=== PATIENT | male | born 1960 | race Caucasian/White ===

== ENCOUNTER 2016-08-13 13:11 | Emergency (ER) | payer OTHER ==
[2016-08-13 13:20] VITALS: BP 120/81; PULSE 78; RESP 18; TEMP 97.3
[2016-08-13] MEDS ORDERED: DIPH,PERTUS(ACELL)TETVAC-LF 0.5 ML VIAL IM ONE (13:24)
--- NOTE | 2016-08-13 13:41 | ED ---
Wound/Laceration HPI - General Chief Complaint: Wound/Laceration Stated Complaint: R hand laceration Time Seen by Provider: 08/13/16 13:23 Source: patient, RN notes reviewed Mode of arrival: ambulatory Limitations: no limitations - History of Present Illness Initial Comments: 56-year-old male presents emergency Department chief complaint right hand laceration. Patient states his putting in a sink and cut his hand on the metal. This was a brand-new sink. He is unsure when his last tetanus was. Patient states bleeding is controlled at this time no paresthesias no weakness. - Related Data Home Medications Medication Instructions Recorded Confirmed No Known Home Medications [No 11/10/13 11/10/13 Known Home Medications] Allergies Allergy/AdvReac Type Severity Reaction Status Date / Time No Known Allergies Allergy Verified 08/13/16 13:20 Review of Systems ROS Statement: Those systems with pertinent positive or pertinent negative responses have been documented in the HPI. ROS Other: All systems not noted in ROS Statement are negative. Past Medical History Past Medical History: No Reported History History of Any Multi-Drug Resistant Organisms: None Reported Past Surgical History: No Surgical Hx Reported Additional Past Surgical History / Comment(s): right knee Past Psychological History: No Psychological Hx Reported Smoking Status: Never smoker Past Alcohol Use History: None Reported Past Drug Use History: None Reported General Exam Limitations: no limitations General appearance: alert, in no apparent distress Respiratory exam: Present: normal lung sounds bilaterally. Absent: respiratory distress, wheezes, rales, rhonchi, stridor Cardiovascular Exam: Present: regular rate, normal rhythm, normal heart sounds. Absent: systolic murmur, diastolic murmur, rubs, gallop, clicks Extremities exam: Present: other (Right hand there is a laceration just proximal to the second MCP there is a 3 cm flap laceration patient is full range of motion of all digits and full strength there is no tendon involvement neurovascular intact) Course Vital Signs 08/13/16 13:18 Temperature 97.3 F L Pulse Rate 78 Respiratory 18 Rate Blood Pressure 120/81 O2 Sat by Pulse 95 Oximetry Medical Decision Making - Medical Decision Making 56-year-old male presented for laceration tetanus was updated wound was closed using sutures patient will come back in 10 days for suture removal wound care was discussed Disposition Clinical Impression: Laceration of right hand Disposition: HOME SELF-CARE Condition: Stable Instructions: Care For Your Stitches (ED), Laceration (ED) Additional Instructions: Please return to the Emergency Department if symptoms worsen or any other concerns. Wash the wound twice daily with soap and water. Have sutures removed in 10 days. Referrals: None,Stated [Primary Care Provider] - 1-2 days Time of Disposition: 13:40
--- NOTE | 2016-08-13 13:48 | ED ---
Disposition Clinical Impression: Laceration of right hand Disposition: HOME SELF-CARE Condition: Stable Instructions: Care For Your Stitches (ED), Laceration (ED) Additional Instructions: Please return to the Emergency Department if symptoms worsen or any other concerns. Wash the wound twice daily with soap and water. Have sutures removed in 10 days. Referrals: None,Stated [Primary Care Provider] - 1-2 days Procedures - Laceration Laceration #1 Indication: laceration Site: hand Size (cm): 3 Description: flap, irregular Depth: simple, single layer Anesthetic Used: lidocaine 1%, without epi Anesthesia Technique: local infiltration Amount (mls): 5 Pre-repair: wound explored, irrigated extensively, deep structures intact Type of Sutures: nylon Size of Sutures: 4-0 Number of Sutures: 7 Technique: simple, interrupted Patient Tolerated Procedure: well, no complications
== END 2016-08-13 13:50 | disposition home or self-care (01) ==
LOC: EC 13:11
DX: S61.411A Laceration without foreign body of right hand, initial encounter (principal); Z23 Encounter for immunization; W45.8XXA Other foreign body or object entering through skin, initial encounter; Y93.89 Activity, other specified
CPT/HCPCS: 12002; 90471; 90715; 99282

== ENCOUNTER 2017-09-09 08:36 | Emergency (ER) | payer OTHER ==
[2017-09-09 08:43] VITALS: TEMP 97.7
[2017-09-09] MEDS ORDERED: ORPHENADRINE 30 MG/ML 2 ML VIAL IVP STA (08:48)
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
[2017-09-09 10:08] VITALS: RESP 18
[2017-09-09 10:54] VITALS: BP 134/91; PULSE 63
== END 2017-09-09 10:53 | disposition home or self-care (01) ==
LOC: EC 08:36
DX: S22.088A Other fracture of T11-T12 vertebra, initial encounter for closed fracture (principal); Z88.8 Allergy status to other drugs, medicaments and biological substances; V43.52XA Car driver injured in collision with other type car in traffic accident, initial encounter; Y92.89 Other specified places as the place of occurrence of the external cause
CPT/HCPCS: 72110; 72128; 72131; 99285; 96374; J2360

== ENCOUNTER → 2017-10-15 | Outpatient (CLI) | payer OTHER ==
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
== END | disposition home or self-care (01) ==
LOC: RADNMMAIN 10:02
PROVIDERS: ATTEND Physical Medicine & Rehabilitation
DX: M47.817 Spondylosis without myelopathy or radiculopathy, lumbosacral region (principal); M47.814 Spondylosis without myelopathy or radiculopathy, thoracic region; M48.54XD Collapsed vertebra, not elsewhere classified, thoracic region, subsequent encounter for fracture with routine healing; M41.24 Other idiopathic scoliosis, thoracic region
CPT/HCPCS: 78306; A9503

== ENCOUNTER 2019-03-25 09:15 | Inpatient (IN) | payer OTHER ==
[2019-03-25] MEDS ORDERED: ASPIRIN 81 MG PO STA (09:27)
--- NOTE | 2019-03-25 09:30 | ED ---
Chest Pain HPI - General Chief Complaint: Chest Pain Stated Complaint: Chest Pain Time Seen by Provider: 03/25/19 09:20 Source: patient, RN notes reviewed Mode of arrival: wheelchair Limitations: no limitations - History of Present Illness Initial Comments: 58-year-old male presents emergency Department with chief complaint of chest discomfort. Patient states pain started primarily this morning that worsened. Patient states that he has had some on-and-off symptoms but nothing to this extent. He states it's in the anterior centralized region of his chest he occasionally feels some pain in his jaw. Denies any back pain or any shortness of breath. Patient denies complaints of abdominal pain including nausea vomiting diarrhea constipation no prior cardiac disease denies hypertension, hyperlipidemia or diabetes. She's had no prior heart cath or stress test. - Related Data Home Medications Medication Instructions Recorded Confirmed Acetaminophen [Tylenol] 500 mg PO Q4-6H PRN 09/09/17 09/09/17 Previous Rx's Medication Instructions Recorded Hydrocodone/Acetaminophen [[place] 1 tab PO Q6HR PRN #12 tab 09/09/17 5-325] Allergies Allergy/AdvReac Type Severity Reaction Status Date / Time GRAVOL AdvReac Vomiting Uncoded 03/25/19 09:19 Review of Systems ROS Statement: Those systems with pertinent positive or pertinent negative responses have been documented in the HPI. ROS Other: All systems not noted in ROS Statement are negative. EKG Findings - EKG Comments: EKG Findings:: EKG performed at 9:24 normal sinus rhythm rate of 82 [place] 156 QRS 92 QT/QTC 388/453 Past Medical History Past Medical History: No Reported History History of Any Multi-Drug Resistant Organisms: None Reported Past Surgical History: No Surgical Hx Reported Additional Past Surgical History / Comment(s): right knee Past Psychological History: No Psychological Hx Reported Smoking Status: Never smoker Past Alcohol Use History: None Reported Past Drug Use History: None Reported General Exam Limitations: no limitations General appearance: alert, in no apparent distress Head exam: Present: atraumatic, normocephalic, normal inspection Eye exam: Present: normal appearance, PERRL, EOMI. Absent: scleral icterus, conjunctival injection, periorbital swelling ENT exam: Present: normal exam, normal oropharynx, mucous membranes moist Neck exam: Present: normal inspection, full ROM. Absent: tenderness, meningismus, lymphadenopathy Respiratory exam: Present: normal lung sounds bilaterally. Absent: respiratory distress, wheezes, rales, rhonchi, stridor Cardiovascular Exam: Present: regular rate, normal rhythm, normal heart sounds. Absent: systolic murmur, diastolic murmur, rubs, gallop, clicks GI/Abdominal exam: Present: soft, normal bowel sounds. Absent: distended, tenderness, guarding, rebound, rigid Neurological exam: Present: alert, oriented X3 Skin exam: Present: warm, dry, intact, normal color. Absent: rash Course Vital Signs 03/25/19 03/25/19 03/25/19 09:16 09:34 09:50 Temperature 98.4 F Pulse Rate 81 Pulse Rate [ 81 Packing Clerk ] Respiratory 18 Rate Blood Pressure 128/85 O2 Sat by Pulse 98 Oximetry 03/25/19 03/25/19 09:51 10:00 Temperature Pulse Rate 75 75 Pulse Rate [ Packing Clerk ] Respiratory 18 17 Rate Blood Pressure 116/73 O2 Sat by Pulse 97 96 Oximetry Chest Pain MDM - MDM Chest x-ray, labs and EKG did not reveal any major abnormality's. Patient does have chest pain that has been persistent. Patient will be admitted for chest exacerbation rule out cardiac disease with consult cardiology. Disposition Clinical Impression: Chest pain Disposition: ADMITTED IP TO THIS HOSP Condition: Fair Referrals: None,Stated [Primary Care Provider] - 1-2 days
--- NOTE | 2019-03-25 09:46 | XR ---
EXAMINATION TYPE: XR chest 2V DATE OF EXAM: 03/25/2019 HISTORY: Chest Pain. REFERENCE: NONE. FINDINGS: The lungs are clear. Pleural space are clear. The heart is not enlarged. IMPRESSION: NO ACTIVE INTRATHORACIC DISEASE.
[2019-03-25 09:55] LABS: Basophils % (A) 1 %; Eosinophils # (A) 0.3 k/uL (0-0.7); Eosinophils % (A) 5 %; HCT 47.7 % (39.0-53.0); HGB 16.5 gm/dL (13.0-17.5); Lymphocytes # (A) 1.7 k/uL (1.0-4.8); Lymphocytes % (A) 29 %; MCHC 34.5 g/dL (31.0-37.0); MCV 86.8 fL (80.0-100.0); Mean Platelet Volume 6.9; Monocytes # (A) 0.3 k/uL (0-1.0); Monocytes % (A) 4 %; Neutrophils # (A) 3.5 k/uL (1.3-7.7); Neutrophils % (A) 60 %; Platelet Count 231 k/uL (150-450); RDW 13.4 % (11.5-15.5); WBC 5.9 k/uL (3.8-10.6)
[2019-03-25 10:01] LABS: ALT 29 U/L (4-49); AST 32 U/L (17-59); African American GFR (CKD) >90 (>60 ml/min/1.73 sqM); Albumin 4.4 g/dL (3.5-5.0); Alkaline Phosphatase 70 U/L (38-126); Anion Gap 10 mmol/L; Blood Urea Nitrogen 16 mg/dL (9-20); Calcium 9.9 mg/dL (8.4-10.2); Carbon Dioxide 24 mmol/L (22-30); Chloride 105 mmol/L (98-107); Glucose 119 mg/dL (74-99); Magnesium 1.7 mg/dL (1.6-2.3); Non-African American GFR(CKD) >90 (>60 ml/min/1.73 sqM); Potassium 4.1 mmol/L (3.5-5.1); Sodium 139 mmol/L (137-145); Total Bilirubin 0.6 mg/dL (0.2-1.3); Total Protein 7.4 g/dL (6.3-8.2)
[2019-03-25 10:08] LABS: INR 0.9 (<1.2); Partial Thromboplastin Time 23.7 sec (22.0-30.0); Prothrombin Time 9.8 sec (9.0-12.0)
[2019-03-25] MEDS ORDERED: HEPARIN SODIUM,PORCINE 5,000 UNIT/ML 1 ML VIAL IV PRN (10:30)
[2019-03-25] MEDS ORDERED: HEPARIN SODIUM,PORCINE 5,000 UNIT/ML 1 ML VIAL IV ONE (10:30)
[2019-03-25] MEDS: HEPARIN SOD,PORK IN 0.45% NACL 25,000 UNIT in 0.45% NACL 1 250ML.BAG IV SCH (10:59)
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
--- NOTE | 2019-03-25 13:52 | CT ---
EXAMINATION TYPE: CT angio chest DATE OF EXAM: 03/25/2019 1:36 PM COMPARISON: HISTORY: Chest pain. CT DLP: 1190.6 mGycm Automated exposure control for dose reduction was used. CONTRAST: CTA scan of the thorax is performed , patient injected with mL of , pulmonary embolism protocol. . FINDINGS: There is 5.4 mm noncalcified nodule in the lateral basal segment of the right lower lobe, b est seen on image 73. Visualized portions of the lungs are otherwise clear. There is no significant axillary, mediastinal or hilar adenopathy. There is no pleural or pericardial fluid. The heart is not enlarged. There is a small sliding hiatal hernia. There is no evidence of pulmonary embolus. The aorta is normal in caliber without evidence of dissection. Visualized portions of the upper abdomen are normal. There is minimal hypertrophic spondylosis within the spine. IMPRESSION: 1. THIS EXAMINATION IS NEGATIVE FOR PULMONARY EMBOLUS. 2. THE AORTA IS NORMAL IN CALIBER WITHOUT EVIDENCE OF DISSECTION. 3. SOLITARY RIGHT-SIDED PULMONARY NODULE. SHORT-TERM FOLLOW-UP IN 6 MONTHS TIME BE SUGGESTED.
[2019-03-25] MEDS ORDERED: HYDROcodone/APAP 5-325MG 1 EACH TAB PO PRN (13:57)
[2019-03-25] MEDS ORDERED: ACETAMINOPHEN TAB 325 MG TAB PO PRN (13:57)
[2019-03-25] MEDS ORDERED: ONDANSETRON 4 MG/2 ML VIAL IVP PRN (13:57)
[2019-03-25] MEDS ORDERED: NALOXONE 0.4 MG/ML 1 ML VIAL IV PRN (13:57)
[2019-03-25] MEDS ORDERED: MELATONIN 3 MG TABLET PO PRN (13:57)
--- NOTE | 2019-03-25 16:32 | CONS ---
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 He came into the hospital with chest pain that has been going on for a few months. The pain apparently was more severe and persisted in the midsternal area and therefore he came in. Pain is constant, not related to physical activity or any position. His initial set of troponin is normal. The quality of the pain has a lot of atypical features and it has been going on for a few months. He has no primary care physician that he now sees. He at the time of my evaluation is resting comfortably without symptoms. PAST MEDICAL HISTORY: This is unremarkable for any hypertension or diabetes. He has no previous surgical history. MEDICATIONS: He takes [place] for pain and Tylenol on a p.r.n. basis. ALLERGIES: He is ALLERGIC to a medicine called GRAVOL. PHYSICAL EXAMINATION: On examination, blood pressure is 138/70, pulse rate 68 per minute. HEENT unremarkable. Fundus was not examined by me. Neck is supple. No JVD. I do not hear a carotid bruit. There is no thyromegaly. Heart exam reveals S1, S2 heard normally. No rub, murmur or gallop. Lungs are clear. Abdomen is soft, nontender. Lower extremities reveal normal pulses. No edema. Central nervous system is normal. EKG revealed sinus mechanism, mild nonspecific ST abnormality. No acute changes. The R- waves are prominent in precordial leads. LABORATORY DATA: Lab data revealed unremarkable troponin initially. Chest x-ray also was unremarkable. The patient had an elevated D-dimer. CT angiography was performed which did not reveal any significant abnormality. Specifically, there was no evidence of any pulmonary embolism and aorta was free of significant disease. There was a right-sided solitary nodule of less than 6 mm. IMPRESSION: 1. Atypical chest pain. 2. Patient is not a smoker, has no major risk factors. 3. History of some arthritis pains. RECOMMENDATIONS: Patient's pain is very atypical. I am recommending serial troponins. We will continue IV heparin for now. If troponins are negative, no recurrence of pain or the quality of pain seems atypical, I will then discharge him and perform a stress test as an outpatient or will keep him and do the stress test on Wednesday. Will increase activity. Based on clinical course, we will make further recommendations. Discussed with the patient in detail. Thank you very much for the consult. MMODL / IJN: [id number] /
[2019-03-26] MEDS: HEPARIN SOD,PORK IN 0.45% NACL 25,000 UNIT in 0.45% NACL 1 250ML.BAG IV SCH (04:16)
[2019-03-26 07:51] LABS: Cholesterol 218 mg/dL (<200); HDL Cholesterol 43 mg/dL (40-60); LDL Cholesterol,Calculated 132 mg/dL (0-99); Triglycerides 214 mg/dL (<150)
[2019-03-26 08:05] LABS: HCT 43.1 % (39.0-53.0); MCH 30.6 pg (25.0-35.0); MCHC 34.9 g/dL (31.0-37.0); MCV 87.6 fL (80.0-100.0); Mean Platelet Volume 6.9; Platelet Count 208 k/uL (150-450); RBC 4.92 m/uL (4.30-5.90); RDW 13.6 % (11.5-15.5)
[2019-03-26] MEDS: ASPIRIN 81 MG PO SCH (08:30)
[2019-03-26] MEDS ORDERED: ASPIRIN 325 MG TAB PO SCH (09:00)
[2019-03-26] MEDS: NITROGLYCERIN SL TABS 0.4 MG TAB SUBLINGUAL PRN ×3 (09:51→19:08)
--- NOTE | 2019-03-26 10:52 | PN ---
PROGRESS NOTE Mr. Thurston presented yesterday with chest pain for nearly a few months. His troponins are normal. EKG is unremarkable. Echo was performed yesterday revealed normal systolic function. He has no further chest pain. Troponins are normal. I am suggesting he can be discharged on 20 mg of atorvastatin daily, metoprolol tartrate 12.5 mg daily, aspirin 81 mg daily. I will see him in the office within a week and perform stress test as an outpatient. Vitals are stable. No JVD. S1-S2 heard normally. Lungs are clear. Abdomen and lower extremity exam unchanged. MMODL / IJN: [id number] /
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
[2019-03-26] MEDS: ATORVASTATIN 40 MG TAB PO SCH (11:02)
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
[2019-03-27 04:34] VITALS: RESP 18
[2019-03-27] MEDS: ASPIRIN 81 MG PO SCH (07:38)
[2019-03-27] MEDS: ATORVASTATIN 40 MG TAB PO SCH (07:38)
--- NOTE | 2019-03-27 09:51 | ECHOF ---
Referral Reason:chest pain MEASUREMENTS -------- HEIGHT: 0.0 cm WEIGHT: 0.0 kg BP: RVIDd: 3.3 cm (< 3.3) IVSd: 1.2 cm (0.6 - 1.1) LVIDd: 4.6 cm (3.9 - 5.3) LVPWd: 1.1 cm (0.6 - 1.1) IVSs: 1.6 cm LVIDs: 3.1 cm LVPWs: 1.6 cm LA Diam: 3.1 cm (2.7 - 3.8) Ao Diam: 3.4 cm (2.0 - 3.7) AV Cusp: 2.0 cm (1.5 - 2.6) MV EXCURSION: 14.967 mm (> 18.000) MV EF SLOPE: 76 mm/s (70 - 150) EPSS: 0.3 cm MV E Alessandro: 0.67 m/s MV DecT: 279 ms MV A Alessandro: 0.58 m/s MV E/A Ratio: 1.17 FINDINGS -------- Sinus rhythm. This was a technically difficult study with suboptimal apical views. The left ventricular size is normal. There is borderline concentric left ventricular hypertrophy. Overall left ventricular systolic function is normal with, an EF between 55 - 60 %. The right ventricle is mildly enlarged. The left atrial size is normal. The right atrium is normal in size. 5 ml of Lumason was utilized for enhancement of images. Interatrial and interventricular septum intact. The aortic valve is trileaflet and appears structurally normal. The mitral valve is normal. The tricuspid valve appears structurally normal. There is no pulmonic regurgitation present. The aortic root size is normal. Normal inferior vena cava with normal inspiratory collapse consistent with estimated right atrial pre ssure of 5 mmHg. There is no pericardial effusion. CONCLUSIONS -------- 1. Sinus rhythm. 2. This was a technically difficult study with suboptimal apical views. 3. The left ventricular size is normal. 4. There is borderline concentric left ventricular hypertrophy. 5. Overall left ventricular systolic function is normal with, an EF between 55 - 60 %. 6. The right ventricle is mildly enlarged. 7. The left atrial size is normal. 8. The right atrium is normal in size. 9. 5 ml of Lumason was utilized for enhancement of images. 10. Interatrial and interventricular septum intact. 11. The aortic valve is trileaflet and appears structurally normal. 12. The mitral valve is normal. 13. The tricuspid valve appears structurally normal. 14. There is no pulmonic regurgitation present. 15. The aortic root size is normal. 16. Normal inferior vena cava with normal inspiratory collapse consistent with estimated right atrial pressure of 5 mmHg. 17. There is no pericardial effusion. SURGERY ASSISTANT: Xochitl Thurston RDCS
--- NOTE | 2019-03-27 10:16 | P.PN ---
Subjective This is a pleasant 58-year-old male past medical history significant for chronic back pain s/p rhizotomy. He continues to have intermittent chest pains throughout the weekend. The pain is not with exertion or activity. It mostly occurs at rest. He still feels a faint discomfort currently. There is no radiation to the arms, back, neck or jaw currently. He denies associated shortness of breath, dizziness or palpitations. At times he does experience some dizziness. Blood pressure 111/73, heart rate 56, afebrile and maintaining oxygen saturation on room air. Currently maintained on atorvastatin 40 mg daily and aspirin 81 mg daily. Echocardiogram reveals preserved LV systolic function with EF 55-60%. GENERAL: Well-appearing, well-nourished and in no acute distress. NECK: Supple without JVD or thyromegaly. LUNGS: Breath sounds clear to auscultation bilaterally. Respiration equal and unlabored. No wheezes, rales or rhonchi. HEART: Regular rate and rhythm without murmurs, rubs or gallops. S1 and S2 heard. EXTREMITIES: Normal range of motion, no edema. No clubbing or cyanosis. Peripheral pulses intact. ASSESSMENT Chest pain, atypical. An acute coronary event has been ruled out. Dyslipidemia PLAN Proceed with stress test as previously ordered. If abnormal we will consider coronary angiography. If normal he is stable for discharge from a cardiac perspective. Follow up with Dr. Antony in the office. Nurse Practitioner note has been reviewed, I agree with a documented findings and plan of care. Patient was seen and examined. Objective - Vital Signs Vital signs: Vital Signs Temp 97.8 F 03/27/19 07:00 Pulse 56 L 03/27/19 07:00 Resp 18 03/27/19 07:00 BP 111/73 03/27/19 07:00 Pulse Ox 98 03/27/19 07:00 Intake & Output 03/26/19 03/27/19 03/27/19 18:59 06:59 18:59 Intake Total 250 240 Balance 250 240 Intake: Oral 240 Blood Product 250 Other: Voiding Method Toilet Toilet Toilet # Voids 1 1 - Labs CBC & Chem 7: 03/26/19 07:05 03/25/19 07:31
--- NOTE | 2019-03-27 10:50 | NM ---
EXAMINATION TYPE: NM stress cardiolite complete DATE OF EXAM: 03/27/2019 COMPARISON: NONE HISTORY: Chest pain TECHNIQUE: After the intravenous administration of 10.56 mCi Tc 99m Sestamibi - Rest images obtained 60 minutes post injection. The patient exercised using a JULIO CESAR protocol and 1 minute prior to peak exercise was injected with 26.8 mCi Tc 99m Sestamibi - Stress images obtained 5 minutes post injecti on. FINDINGS: Targeted heart rate was achieved during performance of the study. Review of stress and rest SPECT herve ges demonstrates some mild decreased radio pharmaceutical uptake along the inferior wall left ventric le on stress as compared to rest images. There is artifact due to gut activity. Gated analysis shows normal wall motion with an estimated left ventricular ejection fraction of 61 %. IMPRESSION: Difficult to exclude stress-induced left ventricular myocardial ischemia along the inferior wall left ventricle
--- NOTE | 2019-03-27 14:20 | EST ---
EXERCISE STRESS AGE: 58 SEX: M HT: 69" WT: 246 PROTOCOL: Cardiolite Kwesi Study STAGE: 3 DURATION OF EXERCISE: 6:15 HEART RATE REST: 59 BLOOD PRESSURE REST: 128/83 MAXIMUM HEART RATE ACHIEVED: 143 MAXIMUM BLOOD PRESSURE: 196/83 85% MPHR: 139 100% MPHR: 164 METS: 7.1 INDICATIONS: Chest pain. CLINICAL INFORMATION: Stress Cardiolite study was performed. Patient was exercised for a total period of 6 minutes. Peak heart rate of 143 was achieved. Maximum blood pressure of 196/83 mmHg was noted. The resting EKG shows a normal sinus rhythm with normal MS interval and QRS duration and normal ST-T waves. No ST-segment depression suggestive of ischemia is noted. Patient did not complain of any chest pain during the test. FINAL IMPRESSION: This exercise test is not suggestive of ischemia. The results of the nuclear study will follow. No dysrhythmias are noted. MMODL / IJN: [id number] /
[2019-03-27] MEDS ORDERED: ALPRAZolam 0.5 MG TAB PO PRN (15:01)
[2019-03-27] MEDS ORDERED: SODIUM CHLORIDE 0.9% 1,000 ML in EMPTY BAG 1 BAG IV ONE (15:01)
[2019-03-27] MEDS ORDERED: ALPRAZolam 0.25 MG TAB PO PRN (15:01)
--- NOTE | 2019-03-27 15:51 | P.PN ---
Subjective Chart was reviewed patient was examined. Patient was admitted with chest pain. Patient is currently chest pain-free. Stress test showed possible positivity and he is planned for cardiac catheterization tomorrow. Objective - Vital Signs Vital signs: Vital Signs Temp 97.9 F 03/27/19 15:27 Pulse 85 03/27/19 15:27 Resp 18 03/27/19 15:27 BP 123/84 03/27/19 15:27 Pulse Ox 95 03/27/19 15:27 Intake & Output 03/26/19 03/27/19 03/27/19 18:59 06:59 18:59 Intake Total 250 240 100 Balance 250 240 100 Intake: Oral 240 Blood Product 250 Other 100 Other: Voiding Method Toilet Toilet Toilet # Voids 1 1 - Exam Vital Signs: I have reviewed the vital signs. GENERAL: Well-nourished, Well-developed , no apparent distress, cooperative Eyes: PERRL, extraoculry movements intact, clear conjunctiva Head: : Atraumatic external nose and ears, oropharyngeal mucosa is moist without lesions or exudates Neck: Symmetric, trachea midline, No thyromegaly, no masses or neck vain pulsation, no neck rigidity CVS: +S1/S2, No murmurs or gallops. Peripheral pulses 2+ and equal in all extremities. RESP: Unlabored respiratory effort. Clear to auscultation bilaterally. Abdomen: Bowel sounds present in all 4 quadrants, Soft to palpation, Nontender/Nondistended, No hepatosplenomegaly, no hernias or masses, no CVA tnderness Musculoskeletal: Extremities w/o deformity, No cyanosis or clubbing, no joint swelling Skin: Warm, Dry. No rashes or lesions Neuro: director of home economics II-XII grossly intact, motor strenght 5/5 i upper and lower extremities, no clonus, patellar DTRs 2+ and sympetrical Psych: Awake, Alert, & Oriented (AAO) x3 Appropriate mood and affect - Labs CBC & Chem 7: 03/26/19 07:05 03/25/19 07:31 Assessment and Plan Assessment: Chest pain with some atypical features -Troponins negative, repeat troponin negative after second episode of chest pain, -echocardiogram with normal ejection fraction and wall motion per verbal report from cardiology -Plan for cardiac catheterization the morning Dizziness Resolved - check orthostatics - Carotid doppler ordered and negative Dyslipidemia - Statin Pulm nodule - will need PCP and F/W in 6 months (added Dr. Ferrara to D/C tab) Obesity with BMI 36.4 -Structured outpatient weight loss Chronic back pain - outpatient follow-up, currently controlled.
[2019-03-28] MEDS: ATORVASTATIN 40 MG TAB PO SCH (07:40)
[2019-03-28] MEDS ORDERED: ASPIRIN 81 MG PO ONE (09:00)
[2019-03-28 11:30] VITALS: TEMP 97.4
[2019-03-28] MEDS ORDERED: IV FLUID CONTINUATION 800 ML IV ONE (13:30)
[2019-03-28] MEDS ORDERED: MIDAZOLAM 2 MG/2 ML VIAL IVP ONE (13:48)
[2019-03-28] MEDS ORDERED: LIDOCAINE 1% INJ 10MG/ML (20 ML MDV) SQ ONE (13:50)
[2019-03-28] MEDS: VERAPAMIL SYRINGE (5 MG/10 ML) INTRAARTER ONE ×2 (13:52→14:02)
[2019-03-28] MEDS ORDERED: HEPARIN SODIUM 1,000 UN/ML (10ML VL) IV ONE (13:53)
[2019-03-28] MEDS ORDERED: IOPAMIDOL-370 100ML BTL INJ ONE (14:02)
[2019-03-28] MEDS ORDERED: RX INFO: IV CONTRAST WAS GIVEN 1 EACH MISC MISCELLANE PRN (14:18)
[2019-03-28] MEDS ORDERED: SODIUM CHLORIDE 0.9% 1,000 ML IV SCH (14:30)
--- NOTE | 2019-03-28 14:52 | CC ---
CARDIAC CATHETERIZATION REPORT DATE OF SERVICE: 03/28/2019 PROCEDURE: Left heart catheterization and coronary angiography. PERFORMED BY: Dr. Hayes Antony. Moderate conscious sedation time was 16 minutes. Patient was administered Versed. Oxygen saturation, hemodynamics and EKG were monitored closely. CLINICAL INFORMATION: Mr. Thurston is a 58-year-old gentleman without significant past medical history. He came into the hospital with episode of chest pain that seemed atypical. Troponins were negative. I was planning on discharging but he continued to have symptoms. Therefore he had a stress test with Lexiscan, which revealed a question of ischemia in the inferior wall and therefore he was advised cardiac catheterization after due discussion regarding risks, benefits, and options. PROCEDURE NOTE: Under local anesthesia and strict aseptic precautions, a 6-Palestinian introducer was placed in the right radial artery. Using a 3.5 left and a 4.0 right Rafa catheters, I performed coronary angiography in the same right catheter was used to check LV pressures. LV gram was not performed. The sheath was taken out and TR band applied as per protocol. The saturation of the finger of the right hand of more than 93%. The patient received 4000 units of heparin intravenously. CARDIAC CATHETERIZATION FINDINGS: The left end-diastolic pressure was about 14 mmHg without any gradient across the aortic valve. CORONARY ANGIOGRAPHY FINDINGS: LEFT MAIN CORONARY ARTERY: This is a long, tortuous, disease-free vessel that bifurcates into LAD, circumflex and ramus intermedius. No disease of significance in the left main. LEFT ANTERIOR DESCENDING CORONARY ARTERY: Good caliber vessel extends along the anterior wall, gives off septal and diagonal branches, runs all the way to the apex. No significant disease. LEFT RAMUS INTERMEDIUS: This is a good caliber, good distribution vessel that runs laterally, supplies a fair amount of myocardium. No significant disease. LEFT POSTERIOR CIRCUMFLEX CORONARY ARTERY: This is a good caliber, good distribution vessel, gives off a posterolateral branch, has minor irregularities distally. No significant disease. RIGHT CORONARY ARTERY: This is a technically dominant vessel. No significant disease distally, bifurcates into PDA and PLV, both of which have minor irregularities. No significant disease in the dominant RCA. LV-gram was not performed. FINAL IMPRESSION: This patient has a right dominant system, no significant coronary artery disease, mildly elevated filling pressures and no gradient across the aortic valve. RECOMMENDATIONS: Findings were discussed with the patient, and several family members. No intervention from a cardiac standpoint other than risk factor modification. Patient will be discharged later today. He will be orally and intravenously hydrated and I will see him in the office in one week. He will go home on the same current medications. MMSHER / HORACION: [id number] /
[2019-03-28 16:54] VITALS: BP 133/84; PULSE 67
--- NOTE | 2019-03-28 18:05 | P.DS ---
Providers Date of admission: 03/27/19 08:04 Attending physician: Carlyn aBnks DO Consults: 03/25/19 10:30 Consult Physician Urgent Consulting Provider: Fermin Perez Reason/Comments: chest pain Do you want consulting provider notified?: Yes Primary care physician: Christiano Ferrara [facility] Course: Date of admission: 03/25/2019 Date of discharge 03/28/2019 Disposition: Home Consultants: Dr. Hayes Antony cardiology Procedures done on this admission: Left heart catheterization: No significant coronary artery disease Other other pertinent studies: Cardiolite stress test CT anginal chest: Negative for pulmonary embolism or aortic dissection. Solitary right sided calcified pulmonary nodule 5.7 mm in the lateral basal segment of the right lower lobe. Short-term follow-up in 6 months with CAT scan recommended by radiologist Admission diagnoses: Chest pain Discharge diagnoses: 1. Atypical chest pain, probably musculoskeletal in nature 2. Pulmonary nodule Reason for admission and Hospital course: Per history and physical on admission, patient was complaining of mid retrosternal chest pain no particular provoking or alleviating factors, occasionally with radiation to the jaw. No diaphoresis palpitations nausea vomiting. Patient reports that this pain and discomfort is been coming on and off for the last 3-4 months. He had significant tenderness over his costo chondral joints per Admission doctor. Patient was evaluated in ER and per cardiology. EKG was unremarkable. CT angiogram was negative for pulmonary embolism or dissection. Serial troponin was negative. He underwent stress test that showed preserved ejection fraction but there was some changes in the basal area inconclusive. He was then taken to cardiac catheterization by cardiology no significant coronary artery disease was found. Patient was cleared for discharge home with cardiology. Cardiology prescribed aspirin statin metoprolol and recommended follow-up in their office in one to 2 weeks. Incidental finding on the CAT scan of the chest was finding of the pulmonary nodule in the right side. Patient is a nonsmoker denies history of any malignancies. He was recommended that he follows up with primary care physician in regards to this and repeat imaging. Symptomatic information was relayed to the patient and he returned verbal understanding. He was placing his discharge paperwork. Social work set up the patient with the new primary care physician. Physical examination on time of discharge Vital Signs: I have reviewed the vital signs. GENERAL: Well-nourished, Well-developed , no apparent distress, cooperative Eyes: PERRL, extraoculry movements intact, clear conjunctiva Head: : Atraumatic external nose and ears, oropharyngeal mucosa is moist without lesions or exudates Neck: Symmetric, trachea midline, No thyromegaly, no masses or neck vain pulsation, no neck rigidity CVS: +S1/S2, No murmurs or gallops. Peripheral pulses 2+ and equal in all extremities. RESP: Unlabored respiratory effort. Clear to auscultation bilaterally. Abdomen: Bowel sounds present in all 4 quadrants, Soft to palpation, Nontender/Nondistended, No hepatosplenomegaly, no hernias or masses, no CVA tnderness Musculoskeletal: Extremities w/o deformity, No cyanosis or clubbing, no joint swelling 35 minutes spent on this discharge Patient Condition at Discharge: Fair Plan - Discharge Summary Discharge Rx Participant: No New Discharge Prescriptions: New Atorvastatin [Lipitor] 20 mg PO DAILY #60 tablet Metoprolol Tartrate [Lopressor] 12.5 mg PO QAM #30 dose Continue Aspirin EC [Ecotrin Low Dose] 162 mg PO ONCE PRN PRN Reason: Pain Discharge Medication List Aspirin EC [Ecotrin Low Dose] 162 mg PO ONCE PRN 03/25/19 [History] Atorvastatin [Lipitor] 20 mg PO DAILY #60 tablet 03/27/19 [Rx] Metoprolol Tartrate [Lopressor] 12.5 mg PO QAM #30 dose 03/27/19 [Rx] Follow up Appointment(s)/Referral(s): Annie Antony MD [STAFF PHYSICIAN] - 04/06/19 10:45 am Christiano Ferrara [Primary Care Provider] - 1-2 Days Patient Instructions/Handouts: Chest Pain (DC), Pulmonary Nodules (GEN) Discharge Disposition: HOME SELF-CARE Plan of Treatment: 1. FOLLOW UP WITH PRIMARY CARE DOCTOR SOL FOR RIGHT LUNG NODULE 2. follow up with cardiology as ordered
[2019-03-29] MEDS ORDERED: ASPIRIN 81 MG PO SCH (09:00)
== END 2019-03-28 20:05 | disposition home or self-care (01) | DRG 287 ==
LOC: EC 09:15 → 1SOBS 10:32 → OBSVTOIN 03-27 08:04
PROVIDERS: ADMIT Internal Medicine; ATTEND Internal Medicine
PROC: 4A023N7 Measurement of Cardiac Sampling and Pressure, Left Heart, Percutaneous Approach (ICD-10-PCS; principal; 2019-03-28 13:30)
PROC: B2111ZZ Fluoroscopy of Multiple Coronary Arteries using Low Osmolar Contrast (ICD-10-PCS; principal; 2019-03-28 13:30)
DX: R07.89 Other chest pain (principal); R91.1 Solitary pulmonary nodule; E66.01 Morbid (severe) obesity due to excess calories; Z68.36 Body mass index [BMI] 36.0-36.9, adult; E78.5 Hyperlipidemia, unspecified; R61 Generalized hyperhidrosis; R42 Dizziness and giddiness; G89.29 Other chronic pain; M54.9 Dorsalgia, unspecified; M19.90 Unspecified osteoarthritis, unspecified site; Z98.890 Other specified postprocedural states; Z88.8 Allergy status to other drugs, medicaments and biological substances; Z82.49 Family history of ischemic heart disease and other diseases of the circulatory system; Z83.6 Family history of other diseases of the respiratory system
CPT/HCPCS: 36415; 71046; 71275; 78452; 80053; 80061; 83690; 83735; 83880; 84484; 85025; 85027; 85610; 85730; 93005; 93017; 93306; 93458; 93880; 96365; 96376; 99285

== ENCOUNTER → 2019-09-26 | Outpatient (CLI) | payer OTHER ==
--- NOTE | 2019-09-26 14:01 | CT ---
EXAMINATION TYPE: CT chest w con DATE OF EXAM: 09/26/2019 COMPARISON: CTA chest 03/25/2019. CT lumbar spine 09/09/2017. HISTORY: Right pulmonary nodule CT DLP: 868.7 mGycm Automated exposure control for dose reduction was used. CONTRAST: CT scan of the chest is performed with IV Contrast, patient injected with 100 mL of Isovue 300. FINDINGS: LUNGS: Unchanged 5 mm solid pulmonary nodule of the right lower lobe laterally (4:44). There is no pl eural effusion or pneumothorax seen. The tracheobronchial tree is patent. MEDIASTINUM: No lymphadenopathy. No cardiomegaly or pericardial effusion is seen. OTHER: Fatty liver. Peripelvic renal cysts. There is vertebral body height loss of the T11 vertebral body superior endplate which is minimally increased versus 09/09/2017 CT comparison. IMPRESSION: 1. Unchanged 5 mm right lower lobe lung nodule. Per Fleischner criteria, if the patient is low risk, no additional follow-up is recommended. If the patient is high risk, optional noncontrast CT can be performed in 6 months. 2. Fatty liver.
== END | disposition home or self-care (01) ==
LOC: RADCTMAIN 09:37
PROVIDERS: ATTEND Family Medicine
DX: R91.1 Solitary pulmonary nodule (principal)
CPT/HCPCS: 71260; Q9967

== ENCOUNTER 2019-12-23 11:22 | Emergency (ER) | payer OTHER ==
[2019-12-23 11:35] VITALS: RESP 16; TEMP 97.4
[2019-12-23] MEDS ORDERED: HYDROcodone/APAP 5-325MG 1 EACH TAB PO STA (11:56)
--- NOTE | 2019-12-23 12:01 | ED ---
Fall HPI - General Chief Complaint: Fall Stated Complaint: rib pain Time Seen by Provider: 12/23/19 11:43 Source: patient, family Mode of arrival: ambulatory - History of Present Illness Initial Comments: Patient is a 59-year-old male presenting to the emergency department with a chief complaint of rib pain. Patient states about one week ago he tripped and fell forward which causes right arm and elbow to push into the right side of his chest cavity. Patient states he has right-sided rib pain that seems to be slowly improving although it is still persistent. Patient reports the pain is pleuritic in nature especially with full inspiration. States there was no bruising in the region. States there is significant pain to palpation on the right side. States she also reported some epigastric pain this morning that went away. Denies chest pain or shortness of breath. - Related Data Home Medications Medication Instructions Recorded Confirmed Aspirin EC [Ecotrin Low Dose] 162 mg PO ONCE PRN 03/25/19 03/25/19 Previous Rx's Medication Instructions Recorded Atorvastatin [Lipitor] 20 mg PO DAILY #60 tablet 03/27/19 Metoprolol Tartrate [Lopressor] 12.5 mg PO QAM #30 dose 03/27/19 Ketorolac [Toradol] 10 mg PO Q8HR #7 tab 12/23/19 Allergies Allergy/AdvReac Type Severity Reaction Status Date / Time GRAVOL AdvReac Vomiting Uncoded 03/25/19 11:56 Review of Systems ROS Statement: Those systems with pertinent positive or pertinent negative responses have been documented in the HPI. ROS Other: All systems not noted in ROS Statement are negative. Past Medical History Past Medical History: No Reported History Additional Past Medical History / Comment(s): Chronic back pain status post rhizotomy History of Any Multi-Drug Resistant Organisms: None Reported Past Surgical History: Back Surgery, Orthopedic Surgery Additional Past Surgical History / Comment(s): right knee scope, rhizotomy for back pain Past Anesthesia/Blood Transfusion Reactions: No Reported Reaction Past Psychological History: No Psychological Hx Reported Smoking Status: Former smoker Past Alcohol Use History: Occasional Past Drug Use History: None Reported - Past Family History Father Additional Family Medical History / Comment(s): Myocardial infarction in his 50s, chronic lung problems Brother(s) Additional Family Medical History / Comment(s): Myocardial infarction at age 50 General Exam Limitations: no limitations General appearance: alert, in no apparent distress, obese Head exam: Present: atraumatic, normocephalic, normal inspection Eye exam: Present: normal appearance, PERRL, EOMI Pupils: Present: normal accommodation ENT exam: Present: normal exam, normal oropharynx, mucous membranes moist, TM's normal bilaterally, normal external ear exam Neck exam: Present: normal inspection, full ROM. Absent: tenderness Respiratory exam: Present: normal lung sounds bilaterally, chest wall tenderness (Tenderness on the right side along the anterior regular line. Very localized tenderness to palpation.). Absent: respiratory distress, wheezes, rales Cardiovascular Exam: Present: regular rate, normal rhythm, normal heart sounds GI/Abdominal exam: Present: soft, tenderness (No tenderness in the epigastric or lower sternal region.). Absent: distended, guarding, rebound, rigid Extremities exam: Present: normal inspection, full ROM, normal capillary refill. Absent: tenderness Back exam: Present: normal inspection, full ROM. Absent: tenderness, CVA tenderness (R), CVA tenderness (L) Neurological exam: Present: alert, oriented X3 Psychiatric exam: Present: normal affect, normal mood Skin exam: Present: warm, dry, intact, normal color Course Vital Signs 12/23/19 11:28 Temperature 97.4 F L Pulse Rate 74 Respiratory 16 Rate Blood Pressure 159/99 O2 Sat by Pulse 99 Oximetry Medical Decision Making - Medical Decision Making Patient is a 59-year-old male presenting to emergency Department with a chief complaint of rib pain. X-ray of the chest and right-sided ribs is unremarkable. There is some pleural thickening noted suggesting pleuritis. This is the region where the patient also had some pain this morning which has since resolved. Radiology is recommending CT in the short-term future. Patient states he has a CT of his chest scheduled one week from today. Patient was given Toradol to help with the suspected pleuritis. She does not have any renal or gastric issues. He was advised to follow with the primary care physician. Strict return parameters were thoroughly discussed with patient was understanding and agreeable. Case discussed with physician. Disposition Clinical Impression: Fall, Rib pain on right side Disposition: HOME SELF-CARE Condition: Stable Instructions (If sedation given, give patient instructions): Rib Contusion (ED) Additional Instructions: Follow-up with her primary care. Take prescribed medication as directed. Return to emergency department if symptoms worsen. Prescriptions: Ketorolac [Toradol] 10 mg PO Q8HR #7 tab Is patient prescribed a controlled substance at d/c from ED?: No Referrals: Christiano Ferrara [Primary Care Provider] - 1-2 days Time of Disposition: 13:21
--- NOTE | 2019-12-23 13:07 | XR ---
EXAMINATION TYPE: XR ribs RT w pa chest xray DATE OF EXAM: 12/23/2019 COMPARISON: 03/25/2019 TECHNIQUE: Frontal view of the chest and 4 views of the right ribs are submitted. HISTORY: Pain FINDINGS: The lungs are clear and there is no pneumothorax, pleural effusion, or focal pneumonia. Right apica l pleural thickening. Diffuse osteopenia. Heart size normal. No acute displaced rib fracture as visua lized. IMPRESSION: 1. No acute displaced rib fracture. There is pleural-based thickening which can be associated with pl euritis. Findings stable from prior exam.. Short-term follow-up CT of the chest could be obtained for further evaluation.
[2019-12-23 13:42] VITALS: BP 132/86; PULSE 86
== END 2019-12-23 13:41 | disposition home or self-care (01) ==
LOC: EC 11:22
DX: R07.81 Pleurodynia (principal); Z87.891 Personal history of nicotine dependence; Z88.8 Allergy status to other drugs, medicaments and biological substances; W01.0XXA Fall on same level from slipping, tripping and stumbling without subsequent striking against object, initial encounter; Y92.009 Unspecified place in unspecified non-institutional (private) residence as the place of occurrence of the external cause
CPT/HCPCS: 99283

== ENCOUNTER 2019-12-25 09:07 | Emergency (ER) | payer OTHER ==
[2019-12-25] MEDS ORDERED: SODIUM CHLORIDE 0.9% 1,000 ML IV STA (09:39)
[2019-12-25] MEDS ORDERED: MORPHINE SULFATE 4 MG/ML SYRINGE IV STA (09:39)
--- NOTE | 2019-12-25 09:49 | ED ---
General Adult HPI - General Chief complaint: Fall Stated complaint: recheck - rt rib pain Time Seen by Provider: 12/25/19 09:15 Source: patient, RN notes reviewed Mode of arrival: ambulatory Limitations: no limitations - History of Present Illness Initial comments: 59-year-old male presents to the emergency room for a chief complaint of right- sided rib pain and epigastric pain. Patient reports that he fell onto his right side about 10 days ago. States he has had right rib pain since that time. Patient reports that about 3 days later he started to have epigastric pain. States both seem to be persistent. He was seen here in the emergency room and had an x-ray performed that showed no acute fracture. Patient did show some pleuritis and short-term follow-up CT was recommended. Patient states the pain worsened again last night so he decided to come into the emergency room. He denies nausea vomiting diarrhea. Denies fevers or chills.Patient has no other complaints at this time including shortness of breath, chest pain, nausea or vomiting, headache, or visual changes. - Related Data Home Medications Medication Instructions Recorded Confirmed Ketorolac [Toradol] 10 mg PO Q8HR PRN 12/25/19 12/25/19 Omeprazole 20 mg PO Q72H 12/25/19 12/25/19 diphenhydrAMINE [Benadryl] 25 mg PO HS 12/25/19 12/25/19 Allergies Allergy/AdvReac Type Severity Reaction Status Date / Time GRAVOL AdvReac Vomiting Uncoded 12/25/19 09:54 Review of Systems ROS Statement: Those systems with pertinent positive or pertinent negative responses have been documented in the HPI. ROS Other: All systems not noted in ROS Statement are negative. Past Medical History Past Medical History: No Reported History Additional Past Medical History / Comment(s): Chronic back pain status post rhizotomy History of Any Multi-Drug Resistant Organisms: None Reported Past Surgical History: Back Surgery, Orthopedic Surgery Additional Past Surgical History / Comment(s): right knee scope, rhizotomy for back pain Past Anesthesia/Blood Transfusion Reactions: No Reported Reaction Past Psychological History: No Psychological Hx Reported Smoking Status: Former smoker Past Alcohol Use History: Occasional Past Drug Use History: None Reported - Past Family History Father Additional Family Medical History / Comment(s): Myocardial infarction in his 50s, chronic lung problems Brother(s) Additional Family Medical History / Comment(s): Myocardial infarction at age 50 General Exam Limitations: no limitations General appearance: alert, in no apparent distress Head exam: Present: atraumatic, normocephalic, normal inspection Eye exam: Present: normal appearance, PERRL, EOMI. Absent: scleral icterus, conjunctival injection, periorbital swelling ENT exam: Present: normal exam, mucous membranes moist Neck exam: Present: normal inspection. Absent: tenderness, meningismus, lymphadenopathy Respiratory exam: Present: normal lung sounds bilaterally, chest wall tenderness (pt does have right sided anterior lateral chest wall tenderness. No external signs of trauma). Absent: respiratory distress, wheezes, rales, rhonchi, stridor Cardiovascular Exam: Present: regular rate, normal rhythm, normal heart sounds. Absent: systolic murmur, diastolic murmur, rubs, gallop, clicks GI/Abdominal exam: Present: soft, tenderness (Mild epigastric tenderness without ecchymosis. No lower abdominal pain.), normal bowel sounds. Absent: distended, guarding, rebound, rigid Course Vital Signs 12/25/19 09:11 Temperature 98.4 F Pulse Rate 60 Respiratory 18 Rate Blood Pressure 153/80 O2 Sat by Pulse 99 Oximetry EKG Findings - EKG Comments: EKG Findings:: Sinus bradycardia, ventricular rate 56, WA interval 154, QTC 426 Medical Decision Making - Medical Decision Making Vitals are stable. CBC CMP unremarkable. Urinalysis is negative. EKG shows a sinus bradycardia with a ventricular rate of 56. No evidence of ischemic changes. CT chest abdomen and pelvis shows findings suspicious for hairline fracture anterior margin right eighth rib. There is also a stable-appearing 5 mm pulmonary nodule which patient is aware of as well as parapelvic renal cysts. Patient also complaining of epigastric pain after this fall. Patient feels better after pain medications given. Patient will continue to take his Prilosec as well. I suspect pain is likely muscular skeletal in nature. Pain is reproducible after a fall and worsens with movement. At this time patient will be discharged home to follow up with primary care and will return for any worsening symptoms. I did order a lipid panel for patient as he was supposed to get the strong outpatient but did not want to have to be poked for blood work again. He is aware that cost could be different. Patient did not want a Rx for any additional pain medication. He did not want lidocaine patches either. - Lab Data Result diagrams: 12/25/19 09:49 12/25/19 09:49 Lab Results 12/25/19 12/25/19 12/25/19 Range/Units 09:49 09:49 09:49 WBC 4.9 (3.8-10.6) k/uL RBC 5.09 (4.30-5.90) m/uL Hgb 15.7 (13.0-17.5) gm/dL Hct 45.4 (39.0-53.0) % MCV 89.2 (80.0-100.0) fL MCH 30.8 (25.0-35.0) pg MCHC 34.5 (31.0-37.0) g/dL RDW 13.4 (11.5-15.5) % Plt Count 230 (150-450) k/uL Neutrophils % 56 % Lymphocytes % 30 % Monocytes % 5 % Eosinophils % 7 % Basophils % 1 % Neutrophils # 2.8 (1.3-7.7) k/uL Lymphocytes # 1.5 (1.0-4.8) k/uL Monocytes # 0.2 (0-1.0) k/uL Eosinophils # 0.4 (0-0.7) k/uL Basophils # 0.1 (0-0.2) k/uL Sodium 141 (137-145) mmol/L Potassium 4.3 (3.5-5.1) mmol/L Chloride 111 H (98-107) mmol/L Carbon Dioxide 25 (22-30) mmol/L Anion Gap 5 mmol/L BUN 16 (9-20) mg/dL Creatinine 0.94 (0.66-1.25) mg/dL Est GFR (CKD-EPI)AfAm >90 (>60 ml/min/1.73 sqM) Est GFR (CKD-EPI)NonAf >90 (>60 ml/min/1.73 sqM) Glucose 104 H (74-99) mg/dL Calcium 8.9 (8.4-10.2) mg/dL Total Bilirubin 0.6 (0.2-1.3) mg/dL AST 30 (17-59) U/L ALT 36 (4-49) U/L Alkaline Phosphatase 66 (38-126) U/L Total Protein 6.4 (6.3-8.2) g/dL Albumin 3.9 (3.5-5.0) g/dL Amylase 59 (30-110) U/L Lipase 78 (23-300) U/L Urine Color Yellow Urine Appearance Clear (Clear) Urine pH 6.0 (5.0-8.0) Ur Specific [place] 1.028 (1.001-1.035) Urine Protein Trace H (Negative) Urine Glucose (UA) Negative (Negative) Urine Ketones Negative (Negative) Urine Blood Negative (Negative) Urine Nitrite Negative (Negative) Urine Bilirubin Negative (Negative) Urine Urobilinogen 2.0 (<2.0) mg/dL Ur Leukocyte Esterase Negative (Negative) Disposition Clinical Impression: Rib fracture, Abdominal pain Disposition: HOME SELF-CARE Condition: Good Instructions (If sedation given, give patient instructions): Abdominal Pain (ED), Rib Fracture (ED) Additional Instructions: Please take Tylenol for pain. Continue to take Prilosec. Please follow-up with primary care in 1-2 days. Return to the emergency room for any worsening symptoms. Is patient prescribed a controlled substance at d/c from ED?: No Referrals: Christiano Ferrara [Primary Care Provider] - 1-2 days Time of Disposition: 13:27
[2019-12-25 10:05] LABS: Basophils # (A) 0.1 k/uL (0-0.2); Basophils % (A) 1 %; Eosinophils # (A) 0.4 k/uL (0-0.7); Eosinophils % (A) 7 %; HCT 45.4 % (39.0-53.0); HGB 15.7 gm/dL (13.0-17.5); Lymphocytes # (A) 1.5 k/uL (1.0-4.8); Lymphocytes % (A) 30 %; MCH 30.8 pg (25.0-35.0); MCHC 34.5 g/dL (31.0-37.0); MCV 89.2 fL (80.0-100.0); Mean Platelet Volume 6.4; Monocytes # (A) 0.2 k/uL (0-1.0); Monocytes % (A) 5 %; Neutrophils # (A) 2.8 k/uL (1.3-7.7); Neutrophils % (A) 56 %; Platelet Count 230 k/uL (150-450); RBC 5.09 m/uL (4.30-5.90); RDW 13.4 % (11.5-15.5); WBC 4.9 k/uL (3.8-10.6)
[2019-12-25 10:10] LABS: Appearance,Urine Clear (Clear); Bilirubin,Urine Negative (Negative); Blood,Urine Negative (Negative); Color,Urine Yellow; Glucose,Urine (UA) Negative (Negative); Ketones,Urine Negative (Negative); Leukocyte Esterase,Urine Negative (Negative); Nitrite,Urine Negative (Negative); Protein,Urine Trace (Negative); Specific Gravity,Urine 1.028 (1.001-1.035)
[2019-12-25 10:18] LABS: ALT 36 U/L (4-49); AST 30 U/L (17-59); African American GFR (CKD) >90 (>60 ml/min/1.73 sqM); Albumin 3.9 g/dL (3.5-5.0); Alkaline Phosphatase 66 U/L (38-126); Amylase 59 U/L (30-110); Anion Gap 5 mmol/L; Blood Urea Nitrogen 16 mg/dL (9-20); Calcium 8.9 mg/dL (8.4-10.2); Carbon Dioxide 25 mmol/L (22-30); Chloride 111 mmol/L (98-107); Glucose 104 mg/dL (74-99); Non-African American GFR(CKD) >90 (>60 ml/min/1.73 sqM); Potassium 4.3 mmol/L (3.5-5.1); Sodium 141 mmol/L (137-145); Total Bilirubin 0.6 mg/dL (0.2-1.3); Total Protein 6.4 g/dL (6.3-8.2)
--- NOTE | 2019-12-25 11:20 | CT ---
EXAMINATION TYPE: CT ChestAbdPelvis w con DATE OF EXAM: 12/25/2019 COMPARISON: 12/27/2019 HISTORY: Right rib pain, epigastric pain after fall CT DLP: 2298.2 mGycm Automated exposure control for dose reduction was used. CONTRAST: CT scan of the chest, abdomen and pelvis is performed with Oral Contrast and with IV Contrast, patien t injected with 100 ml mL of Isovue 300. FINDINGS: LUNGS: Stable 5 mm nodule right lower lobe. Lungs demonstrate no evidence of pleural effusion or pneu mothorax. Areas of subsegmental consolidation are most typical of atelectasis. Additional tiny 1 mm n odule right upper lobe axial image 25 2 small to characterize MEDIASTINUM: There are no greater than 1 cm hilar or mediastinal lymph nodes. No pericardial effusi on is seen. OTHER: No additional significant abnormality is seen. LIVER/GB: A low-attenuation seen throughout the liver suggestive of hepatic steatosis PANCREAS: No significant abnormality is seen. SPLEEN: No significant abnormality is seen. ADRENALS: No significant abnormality is seen. KIDNEYS: Bilateral parapelvic renal cysts.. BOWEL: No significant abnormality is seen. LYMPH NODES: No greater than 1 cm abdominal or pelvic lymph nodes are appreciated. OSSEOUS STRUCTURES: Mild superior endplate compression deformity of T11 no prior exam. Subtle deformi ty of the right anterior eighth rib suspicious for hairline fracture chronic deformity of the right f irst rib vacuum disc L5-S1 with severe degenerative disc disease. Multilevel mild degenerative disc d isease and hypertrophic changes. Remote-appearing 4 involving the anterior left rib cage OTHER: Small fat-containing periumbilical hernia. Aorta of normal caliber. Fat-containing right ingui nal hernia. IMPRESSION: 1. Findings are suspicious for hairline fracture anterior margin right eighth rib. 2. No acute intrathoracic process. Stable appearing right lower lobe 5 mm pulmonary nodule 3. Hepatic steatosis. 4. Parapelvic renal cysts
[2019-12-25] MEDS ORDERED: FAMOTIDINE 20 MG/2 ML VIAL IV STA (12:12)
[2019-12-25] MEDS ORDERED: MAG HYDROX/AL HYDROX/SIMETH 30 ML, HYOSCYAMINE ELIXIR 10 ML, LIDOCAINE VISCOUS 2% 10 ML PO STA ×3 (12:12)
[2019-12-25 13:40] VITALS: BP 154/98; PULSE 52; RESP 16; TEMP 97.6
[2019-12-25 13:55] LABS: Cholesterol 188 mg/dL (<200); Triglycerides 157 mg/dL (<150)
[2019-12-25 13:56] LABS: HDL Cholesterol 42 mg/dL (40-60); LDL Cholesterol,Calculated 115 mg/dL (0-99)
== END 2019-12-25 13:45 | disposition home or self-care (01) ==
LOC: EC 09:07
DX: S22.089A Unspecified fracture of T11-T12 vertebra, initial encounter for closed fracture (principal); S22.31XA Fracture of one rib, right side, initial encounter for closed fracture; R00.1 Bradycardia, unspecified; R91.1 Solitary pulmonary nodule; N28.1 Cyst of kidney, acquired; R10.13 Epigastric pain; Z91.048 Other nonmedicinal substance allergy status; G89.29 Other chronic pain; M54.9 Dorsalgia, unspecified; Z79.1 Long term (current) use of non-steroidal anti-inflammatories (NSAID); Z98.890 Other specified postprocedural states; Z87.891 Personal history of nicotine dependence; W19.XXXA Unspecified fall, initial encounter
CPT/HCPCS: 36415; 93005; 80061; 80053; 82150; 83690; 85025; 81003; 71260; 74177; 99284; 96374; 96375; 96361; J2270; Q9967

== ENCOUNTER → 2020-01-02 | Outpatient (CLI) | payer OTHER | END | disposition home or self-care (01) | LOC: RADCTMAIN 07:40 | PROVIDERS: ATTEND Family Medicine | DX: Z53.9 Procedure and treatment not carried out, unspecified reason (principal) ==

== ENCOUNTER → 2020-03-25 | Outpatient (CLI) | payer OTHER ==
--- NOTE | 2020-03-25 11:04 | CT ---
EXAMINATION TYPE: CT chest w con DATE OF EXAM: 03/25/2020 COMPARISON: CTA chest December 25, 2019 and older studies HISTORY: Lung nodule CT DLP: 628.00 mGycm. Automated Exposure Control for Dose Reduction was Utilized. TECHNIQUE: CT scan of the thorax is performed following with IV Contrast, patient injected with 100 ml mL of Isovue 300. FINDINGS: LUNGS: The lungs are grossly clear, there is no new concerning parenchymal mass or nodule identified . There is stable 7 x 4 mm right basilar subpleural nodule axial image 42 current study from the last 3 studies. There is no pleural effusion or pneumothorax seen. The tracheobronchial tree is patent. MEDIASTINUM: There are no new greater than 1 cm hilar or mediastinal lymph nodes. No cardiomegaly o r pericardial effusion is seen. OTHER: Visualized liver is markedly low dense consistent with diffuse fatty infiltration. Underlying scoliotic curvature. IMPRESSION: Stable 7 x 4 mm right basilar subpleural nodule laterally. No new nodules or masses. Nodu le presumed benign.
== END | disposition home or self-care (01) ==
LOC: RADCTMAIN 10:14
PROVIDERS: ATTEND Internal Medicine Critical Care Medicine
DX: R91.1 Solitary pulmonary nodule (principal)
CPT/HCPCS: 71260; Q9967

== ENCOUNTER 2020-06-08 10:08 | Observation (INO) | payer OTHER ==
--- NOTE | 2020-06-08 10:18 | ED ---
Chest Pain HPI - General Chief Complaint: Chest Pain Stated Complaint: Chest pain Time Seen by Provider: 06/08/20 10:18 Source: patient, RN notes reviewed, old records reviewed Mode of arrival: ambulatory Limitations: no limitations - History of Present Illness Initial Comments: This is a 52-year-old male DF for evaluation of chest pain patient coming in for chest pain evaluation today. Left-sided chest pain as opposed to prior chest pain which is been right-sided. He does have chronic pain chronic back pain was told the passages chest pain was caused by costochondritis. No recent traumas no recent fevers a patient did have a diaphoretic episode during his chest pain event MD Complaint: chest pain -: hour(s) Onset: during rest Pain Location: left chest Pain Radiation: back Severity: mild Severity scale (1-10): 3 Quality: aching, sharp Consistency: constant, now resolved Improves With: nothing Worsens With: nothing Context: other (none) Anginal Symptoms: diaphoresis Other Symptoms: palpitations Treatments Prior to Arrival: none - Related Data Home Medications Medication Instructions Recorded Confirmed No Known Home Medications 06/08/20 06/08/20 Allergies Allergy/AdvReac Type Severity Reaction Status Date / Time GRAVOL AdvReac Vomiting Uncoded 06/08/20 11:47 Review of Systems ROS Statement: Those systems with pertinent positive or pertinent negative responses have been documented in the HPI. ROS Other: All systems not noted in ROS Statement are negative. EKG Findings - EKG Comments: EKG Findings:: EKG is sinus rhythm 68 IN 148 QRS 92 QTC 438 Past Medical History Past Medical History: No Reported History Additional Past Medical History / Comment(s): Chronic back pain status post rhizotomy History of Any Multi-Drug Resistant Organisms: None Reported Past Surgical History: Back Surgery, Orthopedic Surgery Additional Past Surgical History / Comment(s): right knee scope, rhizotomy for back pain Past Anesthesia/Blood Transfusion Reactions: No Reported Reaction Past Psychological History: No Psychological Hx Reported Smoking Status: Never smoker Past Alcohol Use History: Occasional Past Drug Use History: None Reported - Past Family History Father Additional Family Medical History / Comment(s): Myocardial infarction in his 50s, chronic lung problems Brother(s) Additional Family Medical History / Comment(s): Myocardial infarction at age 50 General Exam Limitations: no limitations General appearance: alert, in no apparent distress Head exam: Present: atraumatic, normocephalic, normal inspection Eye exam: Present: normal appearance, PERRL, EOMI. Absent: scleral icterus, conjunctival injection, periorbital swelling ENT exam: Present: normal exam, mucous membranes moist Neck exam: Present: normal inspection. Absent: tenderness, meningismus, lymphadenopathy Respiratory exam: Present: normal lung sounds bilaterally. Absent: respiratory distress, wheezes, rales, rhonchi, stridor Cardiovascular Exam: Present: regular rate, normal rhythm, normal heart sounds. Absent: systolic murmur, diastolic murmur, rubs, gallop, clicks GI/Abdominal exam: Present: soft, normal bowel sounds. Absent: distended, tenderness, guarding, rebound, rigid Extremities exam: Present: normal inspection, full ROM, normal capillary refill. Absent: tenderness, pedal edema, joint swelling, calf tenderness Back exam: Present: normal inspection Neurological exam: Present: alert, oriented X3, CN II-XII intact Psychiatric exam: Present: normal affect, normal mood Skin exam: Present: warm, dry, intact, normal color. Absent: rash Course Vital Signs 06/08/20 06/08/20 10:12 11:37 Temperature 97.9 F 97.9 F Pulse Rate 75 74 Respiratory 18 16 Rate Blood Pressure 149/94 133/86 O2 Sat by Pulse 99 96 Oximetry - Reevaluation(s) Reevaluation #1: 06/08/20 12:27 Medical record is reviewed Reevaluation #2: 06/08/20 12:27 Patient does not have any significant current pain Reevaluation #3: 06/08/20 12:27 Patient symptoms are mildly improved remained improved with no complaints of shortness of breath Reevaluation #4: 06/08/20 12:28 Spoke with patient regarding findings and questions are answered - Consultations Consultation #1: spoke w DR Camron anguiano for admission Chest Pain MDM - MDM 60 male who presents with some chest pain left-sided chest pain just prior to arrival with some diaphoresis. Patient has normal troponin CT here in the ER, we'll admit for chest pain observation Disposition Clinical Impression: Chest pain Disposition: ADMITTED IP TO THIS [facility] Condition: Undetermined Instructions (If sedation given, give patient instructions): Chest Pain (ED) Is patient prescribed a controlled substance at d/c from ED?: No Referrals: Christiano Ferrara [Primary Care Provider] - 1-2 days
--- NOTE | 2020-06-08 10:48 | XR ---
EXAMINATION TYPE: XR chest 2V DATE OF EXAM: 06/08/2020 COMPARISON: 12/23/2019 HISTORY: Shortness of breath TECHNIQUE: Frontal and lateral views of the chest are obtained. FINDINGS: Scattered senescent parenchymal changes noted. No evidence for infiltrate. No evidence for atelectasis. Heart size is stable. Mediastinal structures are stable and grossly unremarkable. No evidence for hilar prominence. Degenerative changes dorsal spine. IMPRESSION: 1. No evidence for acute pulmonary disease.
[2020-06-08 10:56] LABS: ALT 54 U/L (4-49); AST 76 U/L (17-59); African American GFR (CKD) >90 (>60 ml/min/1.73 sqM); Albumin 4.9 g/dL (3.5-5.0); Alkaline Phosphatase 63 U/L (38-126); Anion Gap 10 mmol/L; Blood Urea Nitrogen 11 mg/dL (9-20); Calcium 9.4 mg/dL (8.4-10.2); Carbon Dioxide 24 mmol/L (22-30); Chloride 103 mmol/L (98-107); Glucose 87 mg/dL (74-99); Lipase 101 U/L (23-300); Non-African American GFR(CKD) >90 (>60 ml/min/1.73 sqM); Potassium 5.2 mmol/L (3.5-5.1); Sodium 137 mmol/L (137-145); Total Bilirubin 1.6 mg/dL (0.2-1.3); Total Protein 8.3 g/dL (6.3-8.2)
[2020-06-08 11:01] LABS: Basophils % (A) 1 %; Eosinophils # (A) 0.3 k/uL (0-0.7); Eosinophils % (A) 4 %; HCT 46.1 % (39.0-53.0); HGB 16.4 gm/dL (13.0-17.5); Lymphocytes # (A) 1.7 k/uL (1.0-4.8); Lymphocytes % (A) 28 %; MCH 30.3 pg (25.0-35.0); MCHC 35.5 g/dL (31.0-37.0); MCV 85.4 fL (80.0-100.0); Mean Platelet Volume 6.8; Monocytes # (A) 0.4 k/uL (0-1.0); Monocytes % (A) 7 %; Neutrophils # (A) 3.6 k/uL (1.3-7.7); Neutrophils % (A) 60 %; Platelet Count 215 k/uL (150-450); RDW 13.9 % (11.5-15.5)
--- NOTE | 2020-06-08 11:59 | CT ---
EXAMINATION TYPE: CT angio chest DATE OF EXAM: 06/08/2020 COMPARISON: 03/25/2020 HISTORY: Chest pains CT DLP: 805.2 mGycm CONTRAST: CT chest with contrast and 3D reconstruction with MIP imaging is performed with IV Contrast, patient injected with 100 mL of Isovue 370. Contrast-enhanced CT of the chest was performed through the course of the pulmonary arteries with ramón g and mediastinal window settings submitted. 3D reconstruction with MIP imaging was also performed. PULMONARY ARTERIES: The pulmonary arteries and their major tributaries are patent. I do not see pavel dence for sizable filling defect to suggest pulmonary embolic process. LUNGS: The lungs are clear and free of infiltrate. No evidence for atelectasis. 3 mm pulmonary nodule left lower lobe is unchanged. No pleural effusion. MEDIASTINUM: Thoracic aorta is of normal caliber,however, evaluation is limited given timing of the contrast bolus. If there is concern for thoracic aortic pathology consider LANCE. Correlate clinicall y . The heart is not enlarged. No evidence for mediastinal mass. No mediastinal lymph nodes greater than 1cm. HILAR STRUCTURES: No evidence for mass. No hilar lymph nodes greater than 1 cm. UPPER ABDOMEN: No significant abnormality is seen. IMPRESSION: 1. No evidence for Pulmonary embolism at this time.
[2020-06-08] MEDS ORDERED: MORPHINE SULFATE 4 MG/ML SYRINGE IV PRN (12:52)
[2020-06-08] MEDS ORDERED: SODIUM CHLORIDE 0.9% 1,000 ML IV SCH (13:00)
[2020-06-08 13:36] LABS: INR 0.9 (<1.2); Partial Thromboplastin Time 22.2 sec (22.0-30.0); Prothrombin Time 9.9 sec (9.0-12.0)
[2020-06-08] MEDS ORDERED: SODIUM POLYSTYRENE SULFONATE 15 GM/60 ML BOTTLE PO STA (14:41)
[2020-06-08] MEDS ORDERED: MORPHINE SULFATE 2 MG/ML SYRINGE IV PRN (14:41)
[2020-06-08] MEDS ORDERED: ACETAMINOPHEN TAB 325 MG TAB PO PRN (14:42)
[2020-06-08] MEDS ORDERED: ONDANSETRON 4 MG/2 ML VIAL IVP PRN (14:42)
--- NOTE | 2020-06-08 14:46 | P.HPIM ---
History of Present Illness H&P Date: 06/08/20 Chief Complaint: Chest pain This is a 60-year-old male withpast medical history who presented to the emergency room with chest pain. 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 Patient rates his pain as 7 out of 10 in severity. There was no radiation. No dizziness or lightheadedness. Patient said that he had to sit down and rest for a while and then he was able to get up and finish his work. He then was concerned and decided to come to the emergency room for further evaluation. In the ER, 12- lead EKG showed no acute ischemic changes. Initial troponin was negative. Patient will be placed in observation for further evaluation. Review of Systems Review of system: 14 points review of systems were obtained and were negative except to what were mentioned in the HPI. Past Medical History Past Medical History: No Reported History Additional Past Medical History / Comment(s): Chronic back pain status post rhizotomy History of Any Multi-Drug Resistant Organisms: None Reported Past Surgical History: Back Surgery, Orthopedic Surgery Additional Past Surgical History / Comment(s): right knee scope, rhizotomy for back pain Past Anesthesia/Blood Transfusion Reactions: No Reported Reaction Past Psychological History: No Psychological Hx Reported Smoking Status: Never smoker Past Alcohol Use History: Occasional Past Drug Use History: None Reported - Past Family History Father Additional Family Medical History / Comment(s): Myocardial infarction in his 50s, chronic lung problems Brother(s) Additional Family Medical History / Comment(s): Myocardial infarction at age 50 Medications and Allergies Home Medications Medication Instructions Recorded Confirmed Type No Known Home Medications 06/08/20 06/08/20 History Allergies Allergy/AdvReac Type Severity Reaction Status Date / Time GRAVOL AdvReac Vomiting Uncoded 06/08/20 11:47 Physical Exam Vitals: Vital Signs Temp Pulse Resp BP Pulse Ox 06/08/20 14:22 97.9 F 96 16 125/83 97 06/08/20 11:37 97.9 F 74 16 133/86 96 06/08/20 10:12 97.9 F 75 18 149/94 99 Intake and Output 06/07/20 06/08/20 06/08/20 22:59 06:59 14:59 Other: Weight 114.305 kg General: The patient is awake and alert, in no distress Eye: there is normal conjunctiva bilaterally. Neck: The neck is supple, there is no JVD. Cardiovascular: Normal S1-S2, no S3-S4, no murmurs. Respiratory: Lungs clear to auscultation bilaterally Gastrointestinal: Abdomen is soft, nontender Musculoskeletal: There is no pedal edema. Neurological:. Speech is normal. Skin: Skin is warm and dry Results CBC & Chem 7: 06/08/20 10:38 06/08/20 10:38 Labs: Abnormal Lab Results - Last 24 Hours (Table) 06/08/20 Range/Units 10:38 Potassium 5.2 H (3.5-5.1) mmol/L Total Bilirubin 1.6 H (0.2-1.3) mg/dL AST 76 H (17-59) U/L ALT 54 H (4-49) U/L Total Protein 8.3 H (6.3-8.2) g/dL Assessment and Plan Assessment: This is a 60-year-old male with no significant past medical history who presented to the emergency room with chest pain. Patient was evaluated in the ER and will be placed in observation for further management of his medical problems noted below. 1. Chest pain, with typical and atypical features. ACS ruled out. Twelve-lead EKG showed no acute ischemic changes. Troponin negative 2 sets. Cardiology consulted for further evaluation. We will continue telemetry monitoring. Patient had a left heart catheterization in March 2019 showing no significant coronary artery disease. 2. Hyperkalemia, exact etiology unclear. Will be given 1 dose of Kayexalate. Repeat lab work in the morning. 3. DVT prophylaxis with subcu Lovenox
[2020-06-08] MEDS: ENOXAPARIN 40 MG/0.4 ML SYRINGE SQ SCH (16:13)
[2020-06-08 19:27] VITALS: RESP 16
[2020-06-09 07:11] VITALS: BP 130/87; PULSE 62; TEMP 98.7
[2020-06-09] MEDS: ENOXAPARIN 40 MG/0.4 ML SYRINGE SQ SCH (08:21)
[2020-06-09] MEDS ORDERED: ASPIRIN 325 MG TAB PO SCH (09:00)
[2020-06-09 09:10] LABS: African American GFR (CKD) 108.7 (60.0-200.0); Anion Gap 6.7 mmol/L (4.00-12.00); BUN/Creat Ratio 14.44 Ratio (12.00-20.00); Calcium 9.3 mg/dL (8.7-10.3); Carbon Dioxide 29.3 mmol/L (21.6-31.8); Chol/HDL Ratio 5.74; LDL Cholesterol,Calculated 138.8 mg/dL (0.0-131.0); Non-African American GFR(CKD) 93.8 (60.0-200.0); Potassium 4.8 mmol/L (3.5-5.5); VLDL Calculation 41.2 mg/dL (5.00-40.00)
--- NOTE | 2020-06-09 12:36 | P.DS ---
Providers Date of admission: 06/08/20 12:53 Expected date of discharge: 06/09/20 Attending physician: Anika Lyon Consults: 06/08/20 12:53 Consult Physician Urgent Consulting Provider: Donna Moe Consult Reason/Comments: cp Do you want consulting provider notified?: Yes Primary care physician: Christiano Ferrara [facility] Course: This is a 60-year-old male with no significant past medical history who presented to the emergency room with chest pain. Patient was evaluated in the ER and will be placed in observation for further management of his medical problems noted below. 1. Chest pain, with typical and atypical features. ACS ruled out. Twelve-lead EKG showed no acute ischemic changes. Troponin negative 2 sets. Cardiology consulted for further evaluation. Stress testing recommended at this time. Patient had a left heart catheterization in March 2019 showing no significant coronary artery disease. Cardiology cleared patient for discharge home. 2. Hyperkalemia, exact etiology unclear. Resolved with repeat lab work. Patient will be discharged home in a stable condition. For further details about this hospitalization please refer to the electronic chart. Time spent on discharge > 30 minutes including counseling and coordination of care Patient Condition at Discharge: Undetermined Plan - Discharge Summary Discharge Rx Participant: No New Discharge Prescriptions: No Action No Known Home Medications Discharge Medication List No Known Home Medications 06/08/20 [History] Follow up Appointment(s)/Referral(s): Annie Antony MD [STAFF PHYSICIAN] - 10 Days (Office is currently closed, please call the office Wednesday am to schedule your appointment.) Christiano Ferrara [Primary Care Provider] - 1-2 days (Office is currently closed, please call the office Wednesday am to schedule your appointment.) Patient Instructions/Handouts: Chest Pain (ED) Discharge Disposition: HOME SELF-CARE
--- NOTE | 2020-06-09 14:14 | P.CRDCN ---
History of Present Illness Consult date: 06/09/20 Consult reason: chest pain History of present illness: The patient is a 60-year-old male with no significant past medical history, who presented to the emergency room after experiencing an episode of acute chest pain. 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 He states he was getting too bails of hay down from above his head when he developed cold sweats and sharp chest pains. He states it was midsternal and did not radiate. He did not develop any shortness of breath. No palpitations, dizziness, or lightheadedness. The patient was interviewed and examined sitting comfortably in the recliner chair. He states he's had no recurrence of symptoms. The patient states he had been developing intermittent cold sweats over the last several weeks, however but this was the first time it was associated with chest pain. DIAGNOSTICS: EKG shows sinus rhythm without ST or T-wave changes CTA of the chest is shows no evidence for pulmonary embolism X-ray shows no evidence of cardiopulmonary disease Vitals show blood pressure 130/87, pulse rate 62, respiratory rate 16, temp 9 8.7F SpO2 97% on room air Lab work shows WBC 6.0, hemoglobin 16.4, hematocrit 46.1, platelet 2:15, sodium 137, potassium 5.2, BUN 11, creatinine 0.76, AST 76, ALT 54, troponins negative 3, BNP 48, lipid profile shows triglycerides at 206, LDL 138, HDL 38 Previous heart cath last April shows no coronary artery disease Previous echocardiogram showed normal LV function PAST MEDICAL HISTORY: GERD REVIEW OF SYSTEMS: No fever or chills. No cough or expectoration. No diaphoresis. Patient denies headache, dizziness, blurred vision, double vision. Patient denies any stomach discomfort. No nausea, vomiting. No hematochezia. No hematemesis. Denies any black stools or blood in his stools. Denies dysuria or hematuria. No muscle weakness or numbness. Positive for cold sweats. Positive chest pain. No dyspnea or orthopnea PHYSICAL EXAMINATION: This is a 60-year-old male in no apparent distress at the time of my examination. HEENT: Head is atraumatic, normocephalic. Pupils are equal, round. Sclerae anicteric. Conjunctivae are clear. Mucous membranes of the mouth are moist. Neck is supple. There is no jugular venous distention. No carotid bruit is heard. CHEST EXAMINATION: Lungs are clear to auscultation. No chest wall tenderness is noted on palpation or with deep breathing. HEART EXAMINATION: Heart regular rate and rhythm. S1, S2 heard. No murmurs, gallops or rub. ABDOMEN: Soft, nontender. Bowel sounds are heard. No organomegaly noted. EXTREMITIES: 2+ peripheral pulses with no evidence of peripheral edema and no calf tenderness noted. NEUROLOGIC EXAMINATION: Patient is awake, alert and oriented x3. 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 REFUGIO Antony in 2-3 weeks The patient has been seen and evaluated. Plan of care has been reviewed and agreed upon by Dr Ramirez. Past Medical History Past Medical History: No Reported History Additional Past Medical History / Comment(s): Chronic back pain status post rhizotomy History of Any Multi-Drug Resistant Organisms: None Reported Past Surgical History: Back Surgery, Orthopedic Surgery Additional Past Surgical History / Comment(s): right knee scope, rhizotomy for back pain Past Anesthesia/Blood Transfusion Reactions: No Reported Reaction Past Psychological History: No Psychological Hx Reported Smoking Status: Never smoker Past Alcohol Use History: Occasional Past Drug Use History: None Reported - Past Family History Father Additional Family Medical History / Comment(s): Myocardial infarction in his 50s, chronic lung problems Brother(s) Additional Family Medical History / Comment(s): Myocardial infarction at age 50 Medications and Allergies Home Medications Medication Instructions Recorded Confirmed Type No Known Home Medications 06/08/20 06/08/20 History Allergies Allergy/AdvReac Type Severity Reaction Status Date / Time GRAVOL AdvReac Vomiting Uncoded 06/08/20 11:47 Physical Exam Vitals: Vital Signs Temp Pulse Pulse Pulse Resp BP BP 06/09/20 07:00 98.7 F 62 16 130/87 06/09/20 00:57 97.8 F 61 16 113/66 06/08/20 19:10 98.0 F 85 16 141/79 06/08/20 15:34 97.9 F 76 18 123/86 06/08/20 14:22 97.9 F 96 16 125/83 Pulse Ox 06/09/20 07:00 97 06/09/20 00:57 98 06/08/20 19:10 97 06/08/20 15:34 98 06/08/20 14:22 97 Intake and Output 06/08/20 06/09/20 06/09/20 22:59 06:59 14:59 Other: # Voids 2 2 Results 06/08/20 10:38 06/09/20 06:02 Cardiac Enzymes 06/08/20 Range/Units 16:36 Troponin I <0.012 (0.000-0.034) ng/mL Lipids 06/09/20 Range/Units 06:02 Triglycerides 206.0 H (0.0-149.0) mg/dL Cholesterol 218 H (0-200) mg/dL HDL Cholesterol 38.0 L (40.0-60.0) mg/dL Cholesterol/HDL Ratio 5.74 Comprehensive Metabolic Panel 06/09/20 Range/Units 06:02 Sodium 141 (135-145) mmol/L Potassium 4.8 (3.5-5.5) mmol/L Chloride 105 (96-109) mmol/L Carbon Dioxide 29.3 (21.6-31.8) mmol/L BUN 13.0 (9.0-27.0) mg/dL Creatinine 0.9 (0.6-1.5) mg/dL Glucose 105 (70-110) mg/dL Calcium 9.3 (8.7-10.3) mg/dL Intake and Output 06/08/20 06/09/20 06/09/20 22:59 06:59 14:59 Other: # Voids 2 2 06/08/20 10:38 06/09/20 06:02
== END 2020-06-09 13:52 | disposition home or self-care (01) ==
LOC: EC 10:08 → 6NMEDSUR 12:53
PROVIDERS: ADMIT Internal Medicine; ATTEND Internal Medicine
DX: R07.89 Other chest pain (principal); E87.5 Hyperkalemia; R61 Generalized hyperhidrosis; R00.2 Palpitations; G89.29 Other chronic pain; M54.9 Dorsalgia, unspecified; K21.9 Gastro-esophageal reflux disease without esophagitis; Z88.8 Allergy status to other drugs, medicaments and biological substances; Z98.890 Other specified postprocedural states; Z82.49 Family history of ischemic heart disease and other diseases of the circulatory system; Z83.6 Family history of other diseases of the respiratory system
CPT/HCPCS: 96372 ×2; 93005 ×2; 99285; 36415; 83880; 80061; 80053; 80048; 83690; 83735; 84484; 85025; 85610; 85730; 87635; 71046; 71275; G0378 ×2; J1650 ×2; Q9967

== ENCOUNTER 2020-06-29 14:05 | Emergency (ER) | payer OTHER ==
[2020-06-29 14:46] VITALS: BP 134/84; PULSE 89; RESP 17; TEMP 97.9
--- NOTE | 2020-06-29 14:56 | ED ---
Lower Extremity Injury HPI - General Chief Complaint: Extremity Injury, Lower Stated Complaint: R Foot Pain Time Seen by Provider: 06/29/20 14:44 Source: patient Mode of arrival: wheelchair Limitations: no limitations - History of Present Illness Initial Comments: 60 year-old male patient presents to the emergency department for evaluation of right foot pain. States a mini horse stepped on his foot on . Reports worsening pain and swelling. He is able to bear weight, but states he is limping. Denies previous injury to the foot. Has not been taking pain medication. Denies any other injuries or concerns.Patient denies any headache, neck pain, back pain, chest pain, shortness of breath, dizziness, weakness, abdominal pain, nausea, vomiting, or difficulties with bowel movements or urination. - Related Data Home Medications Medication Instructions Recorded Confirmed No Known Home Medications 06/08/20 06/08/20 Allergies Allergy/AdvReac Type Severity Reaction Status Date / Time GRAVOL AdvReac Vomiting Uncoded 06/08/20 11:47 Review of Systems ROS Statement: Those systems with pertinent positive or pertinent negative responses have been documented in the HPI. ROS Other: All systems not noted in ROS Statement are negative. Past Medical History Past Medical History: No Reported History Additional Past Medical History / Comment(s): Chronic back pain status post rhizotomy History of Any Multi-Drug Resistant Organisms: None Reported Past Surgical History: Back Surgery, Orthopedic Surgery Additional Past Surgical History / Comment(s): right knee scope, rhizotomy for back pain Past Anesthesia/Blood Transfusion Reactions: No Reported Reaction Past Psychological History: No Psychological Hx Reported Smoking Status: Never smoker Past Alcohol Use History: Occasional Past Drug Use History: None Reported - Past Family History Father Additional Family Medical History / Comment(s): Myocardial infarction in his 50s, chronic lung problems Brother(s) Additional Family Medical History / Comment(s): Myocardial infarction at age 50 General Exam Limitations: no limitations General appearance: alert, in no apparent distress, other (Physical well- developed, well-nourished adult male patient in no acute distress. Vital signs upon presentation are temperature 97.9F, pulse 89, respirations 17, blood pressure 134/84, pulse ox 99% on room air.) Eye exam: Present: normal appearance, PERRL, EOMI. Absent: scleral icterus, conjunctival injection, periorbital swelling ENT exam: Present: normal exam, normal oropharynx, mucous membranes moist Respiratory exam: Present: normal lung sounds bilaterally. Absent: respiratory distress, wheezes, rales, rhonchi, stridor Cardiovascular Exam: Present: regular rate, normal rhythm, normal heart sounds. Absent: systolic murmur, diastolic murmur, rubs, gallop, clicks Extremities exam: Present: full ROM, tenderness (Right first MTP joint), normal capillary refill, other (There is soft tissue swelling and ecchymosis noted over the dorsal aspect of the right foot near the right first MTP joint. Skin is otherwise pink, warm, dry. Cap refill less than 3 seconds. Pedal pulses 2+.). Absent: normal inspection, pedal edema, joint swelling, calf tenderness Neurological exam: Present: alert, oriented X3, CN II-XII intact Psychiatric exam: Present: normal affect, normal mood Skin exam: Present: warm, dry, intact, normal color. Absent: rash Course Vital Signs 06/29/20 14:43 Temperature 97.9 F Pulse Rate 89 Respiratory 17 Rate Blood Pressure 134/84 O2 Sat by Pulse 99 Oximetry Procedures - Orthopedic Splinting/Casting Injury #1 Side: right Lower Extremity Injury Location: foot Lower Extremity Immobilizer: Mayco wrap Medical Decision Making - Medical Decision Making 60-year-old male patient presents to the emergency department today for evaluation of right foot injury. Physical examination did reveal soft tissue swelling and ecchymosis over the dorsal aspect of the right foot near the first MTP joint. Neurovascular status is intact. X-rays were obtained and were negative for any acute fracture. We did place an Mayco wrap discuss rest, ice, elevation. He is instructed to follow-up with his primary care physician for recheck in 1-2 days. Return parameters were discussed in detail. He verbalizes understanding and agrees with this plan. Case discussed with Dr. Izaguirre. - Radiology Data Radiology results: report reviewed, image reviewed 3 views of the right foot are obtained. Report was reviewed in its entirety. Impression by Dr. Monterroso shows no acute abnormality of the right foot. No fracture seen. Disposition Clinical Impression: Contusion of right foot Disposition: HOME SELF-CARE Condition: Good Instructions (If sedation given, give patient instructions): Foot Contusion (ED) Additional Instructions: Use Mayco wrap for comfort and support. This will aid with swelling. Take Tylenol and Motrin for pain control. Follow-up with the primary care physician for recheck in 1-2 days. Have repeat x-rays performed in 7-10 days if pain symptoms persist. Return for any new, worsening, or concerning symptoms Is patient prescribed a controlled substance at d/c from ED?: No Referrals: Christiano Ferrara [Primary Care Provider] - 1-2 days Time of Disposition: 15:55
--- NOTE | 2020-06-29 15:36 | XR ---
EXAMINATION TYPE: XR foot complete RT DATE OF EXAM: 06/29/2020 COMPARISON: NONE HISTORY: Injury. Swelling. TECHNIQUE: 3 views FINDINGS: Metatarsals appear intact. The toes appear intact. I see no fracture nor dislocation. There is an Achilles calcaneal spur. IMPRESSION: No acute abnormality of the right foot. No fracture seen.
== END 2020-06-29 16:05 | disposition home or self-care (01) ==
LOC: EC 14:05
DX: S90.31XA Contusion of right foot, initial encounter (principal); W55.19XA Other contact with horse, initial encounter
CPT/HCPCS: 99283

== ENCOUNTER 2020-07-17 10:52 | Emergency (ER) | payer OTHER ==
[2020-07-17 10:57] VITALS: RESP 16; TEMP 97.8
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
--- NOTE | 2020-07-17 11:30 | XR ---
EXAMINATION TYPE: XR foot complete RT DATE OF EXAM: 07/17/2020 CLINICAL HISTORY: pain TECHNIQUE: Frontal, lateral and oblique images of the right foot are obtained. COMPARISON: None. FINDINGS: There is no acute fracture/dislocation evident. The joint spaces appear within normal pérez its. The overlying soft tissue appears unremarkable. IMPRESSION: There is no acute fracture or dislocation. ICD 10 NO FRACTURE, INITIAL EVALUATION
[2020-07-17 12:05] VITALS: BP 136/89; PULSE 72
== END 2020-07-17 12:05 | disposition home or self-care (01) ==
LOC: EC 10:52
DX: S90.31XA Contusion of right foot, initial encounter (principal); M79.674 Pain in right toe(s); W22.8XXA Striking against or struck by other objects, initial encounter
CPT/HCPCS: 99283

== ENCOUNTER → 2020-12-25 | Outpatient (CLI) | payer OTHER ==
--- NOTE | 2020-12-25 09:21 | XR ---
EXAMINATION TYPE: XR cervical spine limited DATE OF EXAM: 12/25/2020 COMPARISON: NONE HISTORY: Pain TECHNIQUE: Four views are submitted. FINDINGS: The odontoid is intact. There are no compression deformities. The prevertebral soft tissue structur es are within normal limits. Hypertrophic and degenerative change C5-6 and C6-C7. Suspect cervical r ibs bilaterally. IMPRESSION: 1. Hypertrophic and degenerative change lower cervical spine. 2. Suspect small bilateral cervical ribs greater on the right C7.
[2020-12-25 21:36] LABS: Chol/HDL Ratio 5.31 Ratio; HDL Cholesterol 43.3 mg/dL (40.00-60.00); LDL Cholesterol,Calculated 162.5 mg/dL (0.0-131.0); VLDL Calculation 24.2 mg/dL (5.00-40.00)
== END | disposition home or self-care (01) ==
LOC: LABWHC1 08:40
DX: M47.812 Spondylosis without myelopathy or radiculopathy, cervical region (principal); E78.5 Hyperlipidemia, unspecified; R20.0 Anesthesia of skin
CPT/HCPCS: 36415; 72040; 80061

== ENCOUNTER → 2021-06-05 | Outpatient (CLI) | payer OTHER ==
--- NOTE | 2021-06-05 13:44 | XR ---
EXAMINATION TYPE: XR knee complete LT DATE OF EXAM: 06/05/2021 COMPARISON: NONE HISTORY: Pain TECHNIQUE: Three views are submitted. FINDINGS: Mild narrowing of the medial compartment of the knee joint and patellofemoral joint. Trace amount of fluid in the suprapatellar bursa. Osseous structures are intact. No acute fracture seen. IMPRESSION: 1. Mild arthropathy.
== END | disposition home or self-care (01) ==
LOC: RADXRMAIN 13:24
PROVIDERS: ATTEND Family Medicine
DX: M12.862 Other specific arthropathies, not elsewhere classified, left knee (principal)

== ENCOUNTER → 2021-08-23 | Outpatient (CLI) | payer OTHER ==
--- NOTE | 2021-08-23 09:45 | MR ---
EXAMINATION TYPE: MR knee LT wo con DATE OF EXAM: 08/23/2021 COMPARISON: None HISTORY: PAIN IN LEFT KNEE TECHNIQUE: Multiplanar, multisequence imaging of the left knee is performed without IV contrast. FINDINGS: There is no bone contusion or fracture. There is moderate osteophytic change of the medial compartment of the knee with moderate to marked th inning of the articular cartilage and subchondral changes within the medial femoral condyle. There is mild osteophytic change of the patellofemoral compartment with mild cartilaginous thinning and mild osteophytic changes lateral compartment with mild marginal hypertrophic spurring. There is a complex primarily vertical tear of the posterior horn of the medial meniscus. The lateral meniscus is intact. There is no cruciate or collateral ligamentous injury. There is a small to moderate joint effusion. IMPRESSION: 1. Moderate degenerative change of the medial compartment of the knee and mild degenerative change of the patellofemoral and lateral compartment of the knee. 2. Small to moderate joint effusion. 3. Tear of the medial meniscus as described above. 4. No ligamentous injury.
== END | disposition home or self-care (01) ==
LOC: RADMRIMAIN 08:33
PROVIDERS: ATTEND Family Medicine
DX: M17.12 Unilateral primary osteoarthritis, left knee (principal)

== ENCOUNTER → 2021-09-24 | Outpatient (CLI) | payer OTHER ==
[2021-09-24 17:09] LABS: African American GFR (CKD) 111.3 (60.0-200.0); Anion Gap 10.9 mmol/L (10.00-18.00); BUN/Creat Ratio 17.46 Ratio (12.00-20.00); Blood Urea Nitrogen 14.6 mg/dL (9.0-27.0); Calcium 9.4 mg/dL (8.7-10.3); Carbon Dioxide 26.9 mmol/L (20.0-27.5); Potassium 4.9 mmol/L (3.5-5.5)
[2021-09-24 17:25] LABS: Basophils # (A) 0.03 X 10*3/uL (0.00-0.10); Basophils % (A) 0.6 %; Eosinophils # (A) 0.26 X 10*3/uL (0.04-0.35); HCT 45.9 % (39.6-50.0); HGB 15.6 g/dL (13.0-17.0); Immature Grans, Automated 1.2 %; Lymphocytes # (A) 1.74 X 10*3/uL (0.90-5.00); Lymphocytes % (A) 33.4 %; MCH 29.9 pg (27.0-32.0); MCV 87.9 fL (80.0-97.0); Mean Platelet Volume 9.5 fL (9.5-12.2); Monocytes # (A) 0.35 X 10*3/uL (0.20-1.00); Monocytes % (A) 6.7 %; NRBC Per 100 WBC 0 /100 WBCS (0.0-0.0); Neutrophils # (A) 2.77 X 10*3/uL (1.80-7.70); Neutrophils % (A) 53.1 %; Platelet Count 197 X 10*3/uL (140-440); RBC 5.22 X 10*6/uL (4.40-5.60); RDW 13.9 % (11.5-14.5); WBC 5.21 X 10*3/uL (4.50-10.00)
== END | disposition home or self-care (01) ==
LOC: LABPAT 10:05
PROVIDERS: ATTEND Orthopaedic Surgery
DX: Z01.818 Encounter for other preprocedural examination (principal); M23.92 Unspecified internal derangement of left knee; R00.1 Bradycardia, unspecified
CPT/HCPCS: 80048; 85025; 93005

== ENCOUNTER 2021-10-10 06:27 | Day surgery (SDC) | payer OTHER ==
[2021-10-08 10:26] VITALS: BMI 35.6
--- NOTE | 2021-10-09 10:05 | HP ---
HISTORY AND PHYSICAL CHIEF COMPLAINT: Left knee pain. 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 He notes medial pain along with instability. He is having night symptoms. He has tried therapy in addition to medications without much relief. He has been using a cane because of this. PAST MEDICAL HISTORY: Negative. PAST SURGICAL HISTORY: Negative. CURRENT MEDICATIONS: None. He denies drug allergies. FAMILY HISTORY: Significant for heart disease. SOCIAL HISTORY: Negative for current tobacco or alcohol use. REVIEW OF SYSTEMS: 16-point review of systems otherwise reviewed and noncontributory. PHYSICAL EXAMINATION: On examination, the patient is approximately 5 foot 9, 245 pounds of endomorphic habitus. HEENT exam is nonfocal. Neck is supple. He has painless passive motion of the left hip. Straight-leg raise is negative. Active motion left knee -11 to 125 degrees of flexion. He has a trace effusion. He is tender about the medial joint line. Collaterals stable, Kristopher is negative. Osei's elicits medial pain. He has an antalgic gait pattern. His distal neurovascular exam appears intact in the left lower extremity. MRI report left knee 08/23/2021 shows evidence of a posterior horn medial meniscal tear in addition to moderate medial compartment osteoarthrosis. IMPRESSION: 1. Left knee internal derangement with symptomatic medial meniscal tear. 2. Left knee moderate medial compartment osteoarthrosis. RECOMMENDATIONS: I talked to the patient at length regarding his condition and treatment options. At this point, he is having persistent pain and mechanical symptoms despite previous conservative measures. After thorough discussion, he opts to proceed with surgery. We will plan to proceed with arthroscopic evaluation, probable partial medial meniscectomy. We will likely perform that as an outpatient procedure. Risks and benefits were discussed at length in layman's terms. MMODL / IJN: [id number] /
[~2021-10-10 06:27] MED LIST: DEXAMETHASONE SOD PHOSPHATE 4 MG/ML 1 ML VIAL IV ONE; HYDROmorphone 0.5 MG/0.5 ML SYRINGE IVP PRN; LACTATED RINGERS 1,000 ML IV SCH; LIDOCAINE 1% (10MG/ML) FOR IV START INTRADERMA PRN; MIDAZOLAM 2 MG/2 ML VIAL IV PRN; ONDANSETRON 4 MG/2 ML VIAL IVP ONE
[2021-10-10] MEDS ORDERED: SUCCINYLCHOLINE CHLORIDE 200 MG/10 ML VIAL IV ONE (07:53)
[2021-10-10] MEDS ORDERED: LIDOCAINE 2% INJ 20 MG/ML (2 ML VIAL) ONE (07:53)
[2021-10-10] MEDS ORDERED: HYDROmorphone (PF) 1 MG/ML ONE (07:53)
[2021-10-10] MEDS ORDERED: KETOROLAC 15 MG/ML 1 ML VIAL ONE (07:53)
[2021-10-10] MEDS ORDERED: PROPOFOL 10 MG/ML 20 ML VIAL IV ONE (07:53)
[2021-10-10] MEDS ORDERED: fentaNYL (PF) 50 MCG/ML 2 ML AMP ONE (07:53)
[2021-10-10] MEDS ORDERED: MIDAZOLAM 2 MG/2 ML VIAL ONE (07:53)
[2021-10-10] MEDS ORDERED: LACTATED RINGERS 1,000 ML IV ONE (08:29)
--- NOTE | 2021-10-10 08:41 | P.OP ---
Date of Procedure: 10/10/21 Preoperative Diagnosis: Left knee internal derangement Postoperative Diagnosis: Left knee posterior medial meniscal tear Procedure(s) Performed: Left knee arthroscopic partial medial meniscectomy Anesthesia: LUIS ANTONIOA Surgeon: Barron Navarro Estimated Blood Loss (ml): 10 Pathology: none sent Condition: stable Disposition: PACU Indications for Procedure: The patient's a 61-year-old male who presents with progressive left knee pain and mechanical symptoms despite conservative measures. A discussion of the risks and benefits of operative intervention versus continued conservative measures was made with the patient. He opted to proceed with surgery. Operative risks to include infection, neurovascular injury, development of blood clots, possible incomplete resolution of symptoms, possible worsening symptoms and need for subsequent procedures was discussed. Informed consent was obtained. Operative Findings: As below Description of Procedure: The patient was brought to the operating room, and after induction of general anesthesia examined the left knee. Collaterals were stable, Kristopher was negative, and posterior drawer was negative. The left lower extremity was prepped and draped in a normal fashion. A superior lateral portal was made through a 3 mm skin incision superior and lateral to the patella. This was used for outflow. A lateral portal was made through a 5 mm vertical skin incision lateral to the patella tendon above the joint line. Diagnostic arthroscopy was performed. On inspection of the medial compartment, and oblique tear involving the posterior horn medial meniscus in the white-red junction was noted. This was debrided back to stable base with straight baskets and a motorized shaver. The remaining medial meniscus was stable and intact. On inspection of the notch, the anterior cruciate ligament appeared to be intact. On inspection of the lateral compartment, no significant cartilage or meniscal pathology was noted. On inspection of the patellofemoral articulation, there were grade 2 chondral changes diffusely. The gutters were clear debris. The knee was then thoroughly irrigated. The portals were closed with Steri-Strips. A sterile dressing was applied in addition to a compression stocking. The patient was awoken from general anesthesia and transferred to recovery room in good condition. Blood loss was estimated at 10 mL. No complications were incurred.
[2021-10-10 08:58] VITALS: TEMP 97
[2021-10-10 09:51] VITALS: RESP 16
[2021-10-10 10:07] VITALS: PULSE 77
[2021-10-10 10:40] VITALS: BP 136/67
== END 2021-10-10 11:02 | disposition home or self-care (01) ==
LOC: OR 06:27
PROVIDERS: ATTEND Orthopaedic Surgery
DX: M23.222 Derangement of posterior horn of medial meniscus due to old tear or injury, left knee (principal); M17.12 Unilateral primary osteoarthritis, left knee; K21.9 Gastro-esophageal reflux disease without esophagitis; J45.909 Unspecified asthma, uncomplicated; M19.90 Unspecified osteoarthritis, unspecified site; Z88.8 Allergy status to other drugs, medicaments and biological substances; Z82.49 Family history of ischemic heart disease and other diseases of the circulatory system; Z83.6 Family history of other diseases of the respiratory system
CPT/HCPCS: 29881; J2250; J0330; J1100; J0690; J2405; J3010; J1170; J1885; J2704; J2001

== ENCOUNTER 2021-12-02 10:44 | Emergency (ER) | payer OTHER ==
--- NOTE | 2021-12-02 11:42 | XR ---
EXAMINATION TYPE: XR knee complete RT DATE OF EXAM: 12/02/2021 11:36 AM INDICATION: Patient age:Male; 61 years old; Reason for study: pain; COMPARISON: None. TECHNIQUE: The Right knee(s) was examined in 3 projections. Frontal, lateral and oblique. FINDINGS: Mild degeneration changes with osteophyte formation of the patella and tibial plateau. No evidence of any acute osseous pathology, joint space narrowing, or joint effusion is noted. Mild soft tissue swelling anterior to the knee suggested. IMPRESSION: 1. No acute osseous pathology. 2. Mild tricompartmental osteoarthritic changes. 3. Mild prepatellar soft tissue swelling
[2021-12-02] MEDS ORDERED: KETOROLAC 15 MG/ML 1 ML VIAL IVP STA (12:05)
[2021-12-02] MEDS ORDERED: KETOROLAC 15 MG/ML 1 ML VIAL IM STA (12:35)
--- NOTE | 2021-12-02 13:08 | US ---
EXAMINATION TYPE: US venous doppler duplex LE RT DATE OF EXAM: 12/02/2021 12:50 PM COMPARISON: NONE CLINICAL HISTORY: pain. Right posterior knee pain SIDE PERFORMED: Right TECHNIQUE: The lower extremity deep venous system is examined utilizing real time linear array sonog garry with graded compression, doppler sonography and color-flow sonography. VESSELS IMAGED: Common Femoral Vein Deep Femoral Vein Greater Saphenous Vein * Femoral Vein Popliteal Vein Small Saphenous Vein * Proximal Calf Veins (* superficial vessels) Posterior medial right knee area, a 5.4 x 1.1 x 4.1 cm anechoic fluid collection is visualized. There is normal flow, compressibility, vascular waveforms. Right Leg: Negative for DVT IMPRESSION: No evident deep venous thrombosis from the level the knee on the right centrally. Probabl e Brown cyst
--- NOTE | 2021-12-02 13:41 | ED ---
Lower Extremity Injury HPI - General Chief Complaint: Extremity Injury, Lower Stated Complaint: rt knee pain Time Seen by Provider: 12/02/21 12:00 Source: patient Mode of arrival: ambulatory Limitations: no limitations - History of Present Illness Initial Comments: The patient is a 61-year-old male who presents to the emergency department with right knee pain. Patient had meniscus surgery on his left knee on October [address] Navarro. States that he has been walking a little different in order to accommodate for his recent surgery. He has been wearing a knee immobilizer on the left. Began having right knee pain over the past week. He has been taking Motrin and Tylenol 3 which he states has not been helping the pain. She denies any warmth or redness. He has been able to weight bear. Tenderness is located on the lateral aspect of the knee. He denies any injuries. No hip or ankle pain. No other alleviating, precipitating or modifying factors - Related Data Home Medications Medication Instructions Recorded Confirmed Prevacid(Dose Unknown) 1 tab PO DAILY PRN 10/08/21 10/08/21 Previous Rx's Medication Instructions Recorded Acetaminophen-Codeine 300-30mg 1 tab PO Q6H PRN #21 tablet 10/10/21 [Tylenol w/codeine #3] Allergies Allergy/AdvReac Type Severity Reaction Status Date / Time GRAVOL AdvReac Vomiting Uncoded 12/02/21 10:50 Review of Systems ROS Statement: Those systems with pertinent positive or pertinent negative responses have been documented in the HPI. ROS Other: All systems not noted in ROS Statement are negative. Past Medical History Past Medical History: No Reported History Additional Past Medical History / Comment(s): Chronic back pain status post rhizotomy History of Any Multi-Drug Resistant Organisms: None Reported Past Surgical History: Joint Replacement, Orthopedic Surgery Additional Past Surgical History / Comment(s): right knee scope, rhizotomy for back pain Past Anesthesia/Blood Transfusion Reactions: No Reported Reaction Past Psychological History: No Psychological Hx Reported Smoking Status: Never smoker Past Alcohol Use History: None Reported Past Drug Use History: None Reported - Past Family History Father Additional Family Medical History / Comment(s): Myocardial infarction in his 50s, chronic lung problems Brother(s) Additional Family Medical History / Comment(s): Myocardial infarction at age 50 General Exam Limitations: no limitations General appearance: alert, in no apparent distress Respiratory exam: Present: normal lung sounds bilaterally. Absent: respiratory distress, wheezes, rales, rhonchi, stridor Cardiovascular Exam: Present: regular rate, normal rhythm, normal heart sounds. Absent: systolic murmur, diastolic murmur, rubs, gallop, clicks GI/Abdominal exam: Present: soft, normal bowel sounds. Absent: distended, tenderness, guarding, rebound, rigid Extremities exam: Present: tenderness (to palpation behind the right knee. No calf pain or swelling. Minimal right knee effusion. No overlying erythema. 2+ DP and PT pulses. Intact range of motion) Neurological exam: Present: alert, oriented X3, CN II-XII intact Psychiatric exam: Present: normal affect, normal mood Skin exam: Present: warm, dry, intact, normal color. Absent: rash Course Vital Signs 12/02/21 12/02/21 10:47 13:49 Temperature 97.7 F 97.6 F Pulse Rate 69 66 Respiratory 20 16 Rate Blood Pressure 169/96 122/68 O2 Sat by Pulse 99 99 Oximetry Medical Decision Making - Medical Decision Making Upon arrival patient was placed into [facility]. Thorough history and physical exam is performed. X-ray demonstrates mild arthritic changes with prepatellar soft tissue. Ultrasound is performed which demonstrates a Brown's cyst. Results are discussed the patient. I did discuss pain options however patient would like to proceed with just ibuprofen at this time. He is instructed follow-up with Dr. Roberts or further evaluation and treatment. He is to rest, ice and elevate the extremity and return for any new or worsening symptoms. Patient was agreeable and discharged home in stable condition Disposition Clinical Impression: Right knee pain, Brown cyst Disposition: HOME SELF-CARE Condition: Stable Instructions (If sedation given, give patient instructions): Brown Cyst (ED), Knee Pain (ED) Additional Instructions: Please take Motrin 600 mg alternating with Tylenol 500 mg every 4 hours. Follow-up with Dr. Navarro in 1-2 weeks and return for any new or worsening symptoms Is patient prescribed a controlled substance at d/c from ED?: No Referrals: Nathan Posada MD [Primary Care Provider] - 1-2 days Barron Navarro MD [STAFF PHYSICIAN] - 1-2 days Time of Disposition: 13:40
[2021-12-02 13:54] VITALS: BP 122/68; PULSE 66; RESP 16; TEMP 97.6
== END 2021-12-02 13:50 | disposition home or self-care (01) ==
LOC: EC 10:44
DX: M71.21 Synovial cyst of popliteal space [Baker], right knee (principal); Z88.8 Allergy status to other drugs, medicaments and biological substances
CPT/HCPCS: 73562; 93971; 99284; 96372; J1885

== ENCOUNTER → 2022-01-09 | Outpatient (CLI) | payer OTHER ==
--- NOTE | 2022-01-10 02:09 | MR ---
EXAMINATION TYPE: MR knee RT wo con DATE OF EXAM: 01/09/2022 COMPARISON: None HISTORY: Right outer and posterior knee pain for 2 months FINDINGS: The anterior and posterior cruciate ligaments are intact. Patellar tendon is intact. There is increas ed signal in the posterior horn of the lateral meniscus extending to the inferior surface. There is k nee joint effusion. There is popliteal cyst that measures 4 x 1 cm. There is on the T2 images abnormal increased signal in large area of the lateral femoral condyle cons istent with a large bone bruise. No fracture line seen. The proximal tibia and fibula appear intact. The collateral ligaments appear intact. There is mild subcutaneous edema around the anterior knee. Th ere is some minimal thinning of the anterior horn of the medial meniscus. Impression Some degenerative thinning is present in the anterior horn of the medial meniscus. There is vertical and horizontal complex tear of the posterior horn lateral meniscus. No ligamentous tear. Large bone bruise involving the lateral femoral condyle. No fracture line seen. Knee joint effusion and popliteal cyst.
== END | disposition home or self-care (01) ==
LOC: RADMRIMAIN 20:00
PROVIDERS: ATTEND Orthopaedic Surgery
DX: S80.01XA Contusion of right knee, initial encounter (principal); M71.21 Synovial cyst of popliteal space [Baker], right knee

== ENCOUNTER 2022-02-06 08:07 | Day surgery (SDC) | payer OTHER ==
[2022-02-02 11:33] VITALS: BMI 35.6
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
[~2022-02-06 08:07] MED LIST changes: -LIDOCAINE 1% (10MG/ML) FOR IV START INTRADERMA PRN; -MIDAZOLAM 2 MG/2 ML VIAL IV PRN
[2022-02-06] MEDS ORDERED: LACTATED RINGERS 1,000 ML IV ONE ×3 (08:20→10:07)
[2022-02-06] MEDS ORDERED: MIDAZOLAM 2 MG/2 ML VIAL ONE (09:36)
[2022-02-06] MEDS ORDERED: fentaNYL (PF) 50 MCG/ML 2 ML AMP ONE (09:36)
[2022-02-06] MEDS ORDERED: LIDOCAINE 2% INJ 20 MG/ML (2 ML VIAL) ONE (09:36)
[2022-02-06] MEDS ORDERED: PROPOFOL 10 MG/ML 20 ML VIAL IV ONE (09:36)
[2022-02-06] MEDS ORDERED: HYDROmorphone (PF) 1 MG/ML ONE (09:36)
[2022-02-06] MEDS ORDERED: SUCCINYLCHOLINE CHLORIDE 200 MG/10 ML VIAL IV ONE (09:36)
[2022-02-06] MEDS ORDERED: EPINEPHrine (PF) 1 ML in SODIUM CHLORIDE 0.9% IRRIGATIO 3,000 ML IRRIGATION ONE ×4 (09:57)
--- NOTE | 2022-02-06 10:28 | P.OP ---
Date of Procedure: 02/06/22 Preoperative Diagnosis: Right knee internal derangement Postoperative Diagnosis: Right knee posterior lateral meniscal tear Procedure(s) Performed: Right knee arthroscopic partial lateral meniscectomy Anesthesia: LUIS ANTONIOA Surgeon: Barron Navarro Estimated Blood Loss (ml): 10 Pathology: none sent Condition: stable Disposition: PACU Indications for Procedure: The patient's a 61-year-old male presents with progressive right knee pain and mechanical symptoms despite conservative measures. A discussion of the risks and benefits of operative intervention versus continued conservative measures was made with patient. He opted to proceed with surgery. Operative risks to include infection, neurovascular injury, development of blood clots, possible incomplete resolution of symptoms, possible worsening symptoms and need for subsequent procedures was discussed. Informed consent was obtained. Operative Findings: As below Description of Procedure: The patient was brought to the operating room, and after induction of general anesthesia examined the right knee. Collaterals were stable, Kristopher was negative, and posterior drawer was negative. The right lower extremity was prepped and draped in a normal fashion. A superior lateral portal was made through a 3 mm skin incision superior and lateral to the patella. This was used for outflow. A lateral portal was made through a 5 mm vertical skin incision lateral to the patella tendon above the joint line. Diagnostic arthroscopy was performed. On inspection of the medial compartment, no definite meniscal or cartilage pathology was noted. On inspection of the notch, the anterior cruciate ligament appeared to be intact. On inspection of the lateral compartment, a complex tear involving the posterior horn of the lateral meniscus was noted. This was in the white-red junction. This was debrided back to stable base with straight baskets and a motorized shaver. The remaining lateral meniscus was stable and intact. Grade 2-3 degenerative changes were noted diffusely in the lateral compartment. On inspection of the patellofemoral articulation, there was chondral fibrillation however no loose chondral fragments.. The gutters were clear debris. The knee was then thoroughly irrigated. The portals were closed with Steri-Strips. A sterile dressing was applied in addition to a compression stocking. The patient was awoken from general anesthesia and transferred to recovery room in good condition. Blood loss was estimated at 10 mL. No complications were incurred.
[2022-02-06 10:48] VITALS: TEMP 97
[2022-02-06 11:46] VITALS: BP 132/83; PULSE 77; RESP 17
== END 2022-02-06 12:03 | disposition home or self-care (01) ==
LOC: OR 08:07
PROVIDERS: ATTEND Orthopaedic Surgery
DX: M23.91 Unspecified internal derangement of right knee (principal); S83.281A Other tear of lateral meniscus, current injury, right knee, initial encounter; M19.90 Unspecified osteoarthritis, unspecified site; G43.909 Migraine, unspecified, not intractable, without status migrainosus; M54.9 Dorsalgia, unspecified; G89.29 Other chronic pain; Z98.890 Other specified postprocedural states; Z82.49 Family history of ischemic heart disease and other diseases of the circulatory system; Z88.6 Allergy status to analgesic agent
CPT/HCPCS: 29881; J2250; J0330; J1100; J0690; J2405; J0171; J3010; J1170; J2704; J2001

== ENCOUNTER 2022-06-18 11:05 | Emergency (ER) | payer OTHER ==
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
--- NOTE | 2022-06-18 11:58 | XR ---
EXAMINATION TYPE: XR foot complete RT DATE OF EXAM: 06/18/2022 COMPARISON: None HISTORY: Great toe pain, no acute injury TECHNIQUE: Three-view right foot FINDINGS: Joint spaces are preserved. No acute fracture or dislocation is evident. Great toe appears intact. Achilles tendon calcaneal heel spurs present. Follow-up can be performed as clinically indicated IMPRESSION: 1. No acute osseous abnormality right foot. 2. Small Achilles tendon calcaneal heel spur
[2022-06-18] MEDS ORDERED: COLCHICINE 0.6 MG EACH PO STA (12:08)
[2022-06-18 12:52] VITALS: BP 124/78; PULSE 69; RESP 16; TEMP 97.8
== END 2022-06-18 12:54 | disposition home or self-care (01) ==
LOC: EC 11:05
DX: M10.9 Gout, unspecified (principal); Z88.8 Allergy status to other drugs, medicaments and biological substances
CPT/HCPCS: 99283